=== PATIENT | male | born 1960 | race Caucasian/White ===

== ENCOUNTER 2022-11-13 04:42 | Emergency (ER) | payer OTHER, SELFPAY ==
[2022-11-13 04:44] VITALS: BP 125/74; PULSE 80; RESP 18; TEMP 36.4; O2SAT 99; BMI 43.3
--- NOTE | 2022-11-13 04:44 | EDS_ITS ---
HPI HPI - Fall History of Present Illness Chief Complaint: Trauma PFSH PFSH Home Medications lansoprazole 15 mg capsule,delayed release (Prevacid) 15 mg PO DAILY 12/13/15 [History Last Taken Unknown] cephalexin 500 mg capsule 500 mg PO Q8H #21 caps 11/13/22 [Rx Last Taken Unknown] lisinopril 20 mg tablet 20 mg PO DAILY 11/13/22 [History Last Taken Unknown] Allergy/AdvReac Type Severity Reaction Status Date / Time lincomycin [From Lincocin] Allergy Unknown Verified 11/13/22 04:59 Penicillins Allergy JOINT PAIN Verified 11/13/22 04:59 Social History Smoking Status: Former smoker EXAM Physical Exam Const Vital Signs: 11/13/22 04:44 11/13/22 04:50 Temperature 97.5 F L 97.6 F L Temperature Source Temporal Temporal Pulse Rate 80 80 Respiratory Rate 18 16 Blood Pressure 125/74 H 125/74 H Blood Pressure Mean 91 91 Pulse Ox 99 99 Oxygen Delivery Method Room Air Room Air MDM MDM MDM Narrative Medical decision making narrative: HISTORY OF PRESENT ILLNESS: 62-year-old male here for hand injury. The patient states he is of mechanical fall from standing prior to arrival. States he was drinking. He notes he was on his porch and he fell forward injuring his head, left hand. No severe laceration to the left hand. No blood thinners. No loss of consciousness. No other complaints. Patient is left-hand dominant. Unknown last tetanus REVIEW OF SYSTEMS: Pertinent positives: hand wound Pertinent negatives: Loss of consciousness, extremity injury PHYSICAL EXAM: Nursing triage notes reviewed, Vital signs reviewed Primary Survey Airway: Intact Breathing: Bilateral breath sounds Circulation: Palpable bilateral femorals, Palpable bilateral radial, Palpable bilateral DP and Palpable bilateral PT Disability / Spine precautions GCS Score: Eye Openin Verbal Response: 5 Motor Response: 6 Secondary Survey Constitutional: Please see MDM Head: Atraumatic, Midface stable, NO jaw malocclusion, No Cephalohematoma, and No Lacerations noted Eye: Pupils equal round and reactive to light, Extraocular muscles intact and No periorbital ecchymosis or stepoff, no evidence of entrapment ENT: Oropharynx clear, no lacerations, no hemotympanum, no raccoon eyes or tabares sign Cervical spine / Neck: No cervical spine bony tenderness, crepitance, or stepoff deformity Trachea midline Lungs: Clear to auscultation, No asymmetric rise and No crepitus, no flail chest Cardiac: Regular rate and rhythm and No murmurs Abdomen: Soft, Nontender and No rebound Pelvis: Pelvis stable to compression : No evidence of genital injury Back: No midline bony tenderness to thoracic/lumbar/sacral spines Neuro: Alert and oriented x3, neuro exam at baseline, cranial nerves II through XII are intact. No pain with extraocular muscle movement. There is negative test of skew. 5 of 5 strength in upper and lower extremities in flexion extension. Intact sensation to light touch in upper and lower extremity dermatomes. No truncal or extremity ataxia. No dysdiadochokinesia. Normal gait. 2+ reflexes in upper and lower extremities. No meningeal signs. Ne gative Babinski. NIH of 0. Intact 5/5 strength with ok sign (median), intact finger abduction (ulnar) intact wrist extension (radial n). Intact sensation in the radial, ulnar, and median nerve distributions. Extremities: Large laceration noted to left hand, no tendinous involvement, intact flexion with the flexor digitorum superficialis and flexor digitorum profundus tendons Psych: Normal affect Nursing triage notes reviewed, Vital signs reviewed MEDICAL DECISION MAKING: Chief Complaint: Fall, head trauma, left hand laceration External records reviewed: Old chart reviewed: No recent ED visits, last ED visit 2017 for right knee effusion Factors affecting care: Hypertension Social determinants of health: former smoker, current alcohol drinker History obtained from others: The patient's Consults: none MDM Narrative: Patient was hemodynamically stable, afebrile, nontoxic-appearing. Primary secondary trauma surveys concerning for the following I considered the following differential diagnosis: Intracranial abnormality, cervical spine abnormality, left hand fracture dislocation, severe laceration ALL IMAGES (IF OBTAINED) HAVE BEEN PERSONALLY REVIEWED AND INTERPRETED BY MYSELF. X-ray of the left hand was read interpreted by myself shows no evidence of obvious bony abnormality. No evidence of obvious radiopaque foreign body CT scan of the head and cervical spine are negative for acute traumatic injury Tetanus updated. Given Keflex for antimicrobial prophylaxis. The patient suffered lacerations to the left hand On exam there was no evidence of foreign bodies. . There was no evidence of neurovascular injury. Patient had a normal distal vascular exam, and had intact ROM and sensation. There was also no evidence of tendon injury, with normal distal full range of motion, flexion, extension, abduction, abduction. There is no evidence of local joint space involvement at this time. Wound care applied (irrigation and/or local cleansing solution). Laceration repair was then performed please see procedure note. Antibiotic written for home-going. The patient was given signs and symptoms warnings for infection, such as increasing pain, redness, swelling, associated heat, pus or fever. Patient was given instructions for timely follow-up for removal. Patient agreed with the plan of care Procedure: Laceration repair. The procedure was performed by myself. Indication: Wound repair Risks and benefits: risks, benefits and alternatives were discussed Consent: Consent was obtained. Wound Details: approximately 8 cm long curvilinear laceration noted from the dorsum of the left hand wrapping around the fifth metacarpal into the palmar surface Anesthesia: 1% lidocaine injected along the margins of the wound Wound prep: Patient was prepped and draped in the usual sterile fashion. Tetanus: Updated Irrigation Solution: Saline Wound Preparation: Soaked in chlorhexidine and normal saline for approximately 40 minutes The wound was explored to its base in a bloodless field. Procedure Description: Complex wound to the left hand repaired with a running 5 oh chromic gut sutures with adequate approximation Patient tolerated the procedure well with no immediate complications The patient and/or family, caregivers express understanding. The patient and/or family, caregivers agrees with the plan. Shared decision making: I will have a discussion with the patient and or visitors regarding risk/benefits of further testing or admission. They will be made aware of of the risk/benefits inherent in this decision they will be given the opportunity to voice understanding. Total critical care time today provided was at least 0 minutes. This excludes separately billable procedures. Critical care time (if documented) is secondary to the patient having high probability of clinically significant/life threatening deterioration in the patient's condition which required my urgent intervention. Impression: 1. Fall 2. Head trauma 3. Closed head injury 4. Hand laceration Dispo: Discharge Radiography Diagnostic Testing: Clinical Impression(s) from Imaging Studies Brain CT 11/13/22 04:58 IMPRESSION: 1. Mild left forehead scalp contusion. 2. No acute intracranial abnormality. Chronic changes. 3. Acute right maxillary sinusitis. Electronically Signed: Marilu Hassan MD at 5:46 EDT Reading Location ID and State: [facility] / [place] Tel , Service support , Cervical Spine CT 11/13/22 04:58 IMPRESSION: 1. Mild multilevel degenerative changes. No acute cervical spine abnormality. 2. At least moderate-marked cervical carotid calcifications. Consider follow-up ultrasound of the carotids to evaluate for hemodynamically significant stenosis if not previously evaluated. Electronically Signed: Marilu Hassan MD at 5:52 EDT , Hand X-Ray 11/13/22 04:58 IMPRESSION: Deep laceration estimated to be oblique and roughly 1.5 cm in length at the level of the distal fifth metacarpal, very close to but not obviously involving the adjacent bone or joint. Slightly stippled appearance in the laceration suggesting faint debris, not convincing for significant foreign body. Electronically Signed: Marilu Hassan MD at 5:26 EDT , Discharge Plan Triage Chief Complaint: Trauma ED Provider: Kalia Husain Dx/Rx/DC Orders Instructions: ED Laceration, Hand: All Closures Prescriptions: New cephalexin 500 mg capsule 500 mg PO Q8H Qty: 21 0RF No Action lansoprazole [Prevacid] 15 MG capsule 15 mg PO DAILY lisinopril 20 mg tablet 20 mg PO DAILY Primary Care Provider: Brandon Chung Referrals: Brandon Chung MD [Primary Care Provider] - Activity Restrictions/Additional Instructions: Thank you for trusting us with your care today! Please take Tylenol (2 pills, 650 mg), ibuprofen (2 pills, 400 mg) every 6 hours as needed for pain and fever control. Please take antibiotics as prescribed. Please return to the emergency department if your symptoms change or worsen. Specifically if you develop severe headache, loss of vision, slurred speech, facial drooping, focal numbness weakness or loss sensation in your extremities, if you lose consciousness Your hand was repaired absorbable sutures. You do not need to return to get them removed. Please look out for signs of infection which include redness, white-yellow discharge, increasing pain. If these develop please return to the emergency department immediately., Wound recheck Please follow with your primary care physician for further outpatient evaluation and management. Disposition Disposition: Home, Self Care Discharge Date/Time: 11/13/22 06:31
[2022-11-13 04:50] VITALS: BP 125/74; PULSE 80; RESP 16; TEMP 36.4; O2SAT 99
--- NOTE | 2022-11-13 04:58 | RAD_ITS ---
EXAM: XR LEFT HAND COMPLETE, 3 OR MORE VIEWS CLINICAL INDICATION: hand laceration TECHNIQUE: 4 views. COMPARISON: No relevant prior studies available. FINDINGS: BONES/JOINTS: Unremarkable. No acute fracture. No subluxation. Normal alignment. Preservation of the joint space. No sclerotic or destructive changes observed. SOFT TISSUES: Laceration at the medial hand at the level of the distal fifth metacarpal, oblique, without underlying bone fragment or significant MCP joint distention. Very close to the MCP joint. Small ovoid radiopaque metallic foreign body in the index finger proximally appears likely chronic. No soft tissue swelling or gas. RAD/Hand Min 3 Views IMPRESSION: Deep laceration estimated to be oblique and roughly 1.5 cm in length at the level of the distal fifth metacarpal, very close to but not obviously involving the adjacent bone or joint. Slightly stippled appearance in the laceration suggesting faint debris, not convincing for significant foreign body. Electronically Signed: Marilu Hassan MD at 5:26 EDT ,
--- NOTE | 2022-11-13 04:58 | CT_ITS ---
EXAM: CT HEAD WITHOUT INTRAVENOUS CONTRAST CLINICAL INDICATION: fall, head trauma TECHNIQUE: Multiple axial images were obtained of the head without intravenous contrast. This CT exam was performed using one or more of the following dose reduction techniques: automated exposure control, adjustment of the mA and/or kV according to patient size, and/or use of iterative reconstruction technique. RADIATION DOSE: CTDIvol = 44.99 mGy, DLP = 829.85 mGy-cm COMPARISON: No relevant prior studies available. FINDINGS: BRAIN AND EXTRA-AXIAL SPACES: Mild-moderate cerebral volume loss. No intra- or extra-axial hemorrhage. No evidence of acute infarct. No intracranial mass or mass effect. There is preservation of the wesley/white matter interface. Posterior fossa structures are unremarkable. Ventricles are appropriate for age. No hydrocephalus. Basal cisterns are patent. BONES/JOINTS: Unremarkable. No discrete lytic or blastic abnormalities. SOFT TISSUES: Mild left forehead scalp swelling and presumed contusion. SINUSES: Moderate right maxillary sinus fluid. Mild mucosal thickening in the left maxillary sinus Otherwise unremarkable paranasal sinuses. MASTOID AIR CELLS: Unremarkable. Clear. ORBITS: Visualized globes, extraocular muscles, optic nerves and retrobulbar fat appear unremarkable. CT/Brain/Head without Contrast IMPRESSION: 1. Mild left forehead scalp contusion. 2. No acute intracranial abnormality. Chronic changes. 3. Acute right maxillary sinusitis. Electronically Signed: Marilu Hassan MD at 5:46 EDT ,
--- NOTE | 2022-11-13 04:58 | CT_ITS ---
EXAM: CT CERVICAL SPINE WITHOUT INTRAVENOUS CONTRAST CLINICAL INDICATION: neck pain after trauma TECHNIQUE: Helically acquired images were obtained of the cervical spine without intravenous contrast. 2D reformatted images were reviewed. This CT exam was performed using one or more of the following dose reduction techniques: automated exposure control, adjustment of the mA and/or kV according to patient size, and/or use of iterative reconstruction technique. RADIATION DOSE: CTDIvol = 29.17 mGy, DLP = 653.77 mGy-cm. COMPARISON: No relevant prior studies available. FINDINGS: VERTEBRAE: Mild anterior spondylosis at C4-C6. Mild facet joint hypertrophic changes, greater on the left at C2-C5. Slight no evidence of significant spinal stenosis. Straightening of the usual lordotic curvature. No fracture. No traumatic subluxation. No discrete lytic or blastic abnormality. Normal craniocervical junction and cervicothoracic junction. DISCS/SPINAL CANAL/NEURAL FORAMINA: See below. Mild right C2-3, left C3-4, and right C4-5 neural foraminal stenosis. SOFT TISSUES: Unremarkable. No prevertebral soft tissue swelling. VASCULATURE: Moderate-marked cervical carotid calcifications, greater on the right cannot exclude significant Right ICA stenosis. LYMPH NODES: Unremarkable. No cervical adenopathy. THYROID: Mildly heterogeneous thyroid without obvious discrete nodule. LUNG APICES: Unremarkable as visualized. Clear. CT/Spine Cervical without Contras IMPRESSION: 1. Mild multilevel degenerative changes. No acute cervical spine abnormality. 2. At least moderate-marked cervical carotid calcifications. Consider follow-up ultrasound of the carotids to evaluate for hemodynamically significant stenosis if not previously evaluated. Electronically Signed: Marilu Hassan MD at 5:52 EDT ,
[2022-11-13] MEDS: Cephalexin 250 MG Capsule 500 MG PO (05:11)
[2022-11-13] MEDS: Oxycodone/Apap 5/325 Tablet PO (05:12)
[2022-11-13] MEDS: Diphth,Pertuss(Acell),Tet Vac 0.5 ML Vial IM (05:12)
--- NOTE | 2022-11-13 06:30 | ED.RN ---
APPLIED TELFA TO WOUND LEFT HAND AND WRAPPED WITH KERLIX X2 SECURED WITH TAPE, APPLIED CONCETTA WRAP AND BANDAID TO LEFT HAND 5TH DIGIT, SLING APPLIED TO KEEP HAND ELEVATED.
== END 2022-11-13 06:31 | disposition home or self-care (01) ==
PROVIDERS: Emergency Provider Emergency Medicine; PCP Family Medicine; Visit Provider Emergency Medicine
DX: S00.83XA Contusion of other part of head, initial encounter (principal); S61.412A Laceration without foreign body of left hand, initial encounter; I10 Essential (primary) hypertension; Z87.891 Personal history of nicotine dependence; Z23 Encounter for immunization; Z79.899 Other long term (current) drug therapy; W19.XXXA Unspecified fall, initial encounter
CPT/HCPCS: 13132; 13133; 70450; 72125; 73130; 90471; 90715; 99283

== ENCOUNTER 2024-07-01 13:09 | Emergency (ER) | payer OTHER, SELFPAY ==
[2024-07-01 13:12] VITALS: BP 180/115; PULSE 99; RESP 20; TEMP 36.4; O2SAT 99; BMI 43.4
--- NOTE | 2024-07-01 13:57 | EKG12_ITS ---
Test Reason : Blood Pressure : */* mmHG Vent. Rate : 90 BPM Atrial Rate : 90 BPM P-R Int : 168 ms QRS Dur : 90 ms QT Int : 380 ms P-R-T Axes : 46 51 25 degrees QTcB Int : 464 ms Normal sinus rhythm with sinus arrhythmia Normal ECG Confirmed by BINTA BERMUDEZ, MICHAEL ([id number]), manager editorial TOMAS SALAZAR ([id number]) on 07/02/2024 10:29:57 AM Referred By: Confirmed By: MICHAEL JUDD MD
--- NOTE | 2024-07-01 13:58 | RAD_ITS ---
PROCEDURE: CHEST PA AND LATERAL 07/01/2024 REASON FOR EXAM: HYPERTENSION TECHNIQUE: Frontal and lateral views of the chest. COMPARISON: None FINDINGS: Hardware: EKG electrodes are seen. Heart: The heart size is normal. Mediastinum: The mediastinal contour is unremarkable. Lungs: The lungs are clear. Bones: Degenerative changes are identified within the thoracic spine. RAD/Chest PA and Lateral IMPRESSION: NO ACUTE FINDINGS. Reading Location: [facility]
--- NOTE | 2024-07-01 14:07 | EDS_ITS ---
HPI History of Present Illness Chief Complaint: Hypertension Narrative Narrative: Chief complaint and HPI: HTN. 64-year-old gentleman with past medical history of HTN presents for evaluation of HTN. Patient states that he does not follow with a assisted living associate. His doctor manages his medication. He states he is on 40 mg Lisinopril daily. Patient states the past week he has been checking his blood pressure and it has been continuously high. He states this morning his SBP was in the 200s. He states with this he developed lightheadedness, nausea, chest tightness. He states he took another 40 mg lisinopril prior to arrival here in the emergency department. On presentation, blood pressure was in the 180s. Now in the 160s. He states since his blood pressure has improved all of his symptoms have resolved. He denies any fever, chills, shortness of breath, chest pain, emesis, diarrhea. No history of arrhythmia. Patient has a sinus arrhythmia on the monitor. States he does occasionally get short of breath with exertion. Previous tobacco abuser years ago. Denies any cardiac history, hypertension, diabetes. On chart review, patient is supposed to take lisinopril 20 mg twice daily. He states he does not follow this and instead takes 40 mg daily in the morning. Review of systems: See HPI Medications: As listed on the chart Allergies: As listed on the chart PFSH: Per chart Vital signs: As listed on the chart. Reviewed. Physical exam: Gen: A&O x3, NAD Head: Normocephalic, atraumatic Eyes: No sclera icterus, conjunctiva clear ENT: Moist mucous membranes Neck: Trachea midline, No JVD CV: Regular rate and rhythm, no murmurs, no peripheral edema Resp: Lungs CTA BL, no w/r/c GI: Abd soft, non-distended, non-tender, no r/r/g Musc: Full ROM, no deformity Skin: Warm, dry Neuro: Alert, oriented, grossly intact, sensation intact Psych: Cooperative, appropriate mood and affect [facility] Medical History (Updated 07/01/24 @ 16:[address] Kendrick Pérez DO) HTN (hypertension) Home Medications ?Medication ?Instructions ?Recorded ?Last Taken ?Type lisinopril 20 mg tablet 20 mg PO BID 11/13/22 History amlodipine 5 mg tablet 5 mg PO DAILY 30 days #30 ta bs 07/01/24 Unknown Rx lansoprazole 15 mg capsule,delayed 15 mg PO DAILY 06/13 007/01/24 History release magnesium oxide 400 mg PO DAILY 3 days #3 ta bs 07/01/24 Unknown Rx Allergy/AdvReac Type Severity Reaction Status Date / Time lincomycin (From Lincocin) Allergy Unknown Verified 07/01/24 13:14 Penicillins Allergy JOINT PAIN Verified 07/01/24 13:14 Social History Smoking Status: Former smoker EXAM Physical Exam Const Vital Signs: 07/01/24 13:12 07/01/24 13:47 07/01/24 14:09 Temperature 97.6 F L Temperature Source Oral Pulse Rate 99 97 Respiratory Rate 20 H Respiratory Effort Normal Non-Labored Respiratory Pattern Normal Blood Pressure 180/115 H 166/84 H Blood Pressure Mean 136 111 Pulse Ox 99 Oxygen Delivery Method Room Air 07/01/24 16:47 Temperature 97.6 F L Temperature Source Pulse Rate 97 Respiratory Rate 20 H Respiratory Effort Respiratory Pattern Blood Pressure 166/84 H Blood Pressure Mean 111 Pulse Ox 99 Oxygen Delivery Method MDM MDM MDM Narrative Medical decision making narrative: 64-year-old gentleman with past medical history of HTN presents for evaluation of HTN. Patient states his blood pressure has been elevated over the past week when he checks it at home. Today he developed lightheadedness, nausea, chest tightness with the hypertension however since hypertension improved, this has resolved. Patient took an extra 40 mg of lisinopril prior to coming to the emergency department. His SBP currently in the 160s. Will monitor. Also endorses occasional shortness of breath with exertion. Differential diagnosis includes but is not limited to hypertension urgency, hypertension emergency, arrhythmia, anemia, electrolyte abnormality, thyroid disorder, PE. Aspirin ordered. EKG and chest x-ray reviewed. CBC without leukocytosis. Patient has anemia with a hemoglobin of 10.8 and thrombocytosis of 89. He denies any bloody bowel movements or bleeding. His previous labs are from 2016. He states his last labs with his PCP was 2 years ago and he is unsure if he had these changes then. He was told he needs to follow-up with his PCP. He confirmed u nderstanding of the plan. Coagulation panel unremarkable. D-dimer elevated at 1.44. Patient will need CTA chest to assess for a PE. NS bolus ordered. BMP shows mild dehydration without MICHAEL. Patient has mildly low magnesium at 1.4. P.o. magnesium ordered. Patient will be placed on magnesium supplement x 3 days and will need to have this repeat outpatient. He confirmed understanding the plan. Troponin 22 and 24. Patient not having any chest pain since his hypertension resolved. Delta less than 6. BNP 461. TSH unremarkable. CTA of the chest negative for PE. Some distal pulmonary arteries cannot be evaluated due to suboptimal opacification. Small esophageal hiatal hernia. Patient's blood pressure has remained controlled here in the emergency department. His SBP has remained in the 160s. He is currently asymptomatic. I suspect patient's symptoms are likely secondary to hypertension urgency. Will place him on amlodipine with his lisinopril. He was told to monitor his blood pressure at home. Follow-up with his PCP as well as let them know that I added on a medication. Return precautions explained. He confirmed understanding the plan. Patient stable to discharge home. EKG: Interpreted by me/EM physician: EKG shows normal sinus rhythm with sinus arrhythmia. Heart rate 90. Diagnostic: Interpreted by me/EM physician: Chest x-ray without pneumonia, effusion, c ardiomegaly, pneumothorax. Radiology in agreement. Impression: 1. Hypertension urgency with established hypertension 2. Mild hypomagnesia 3. Anemia 4. Thrombocytopenia Lab Data Labs: Laboratory Results - last 24 hr 07/01/24 07/01/24 13:30 15:54 WBC 4.4 RBC 4.02 L Hgb 10.8 L Hct 33.8 L MCV 84.1 MCH 26.9 L MCHC 32.0 RDW Std Deviation 58.4 H RDW Coeff of Allison 19.5 H Plt Count 89 L MPV 11.8 Immature Gran % (Auto) 0.500 Neut % (Auto) 75.2 H Lymph % (Auto) 10.3 L [place] % (Auto) 12.6 H Eos % (Auto) 0.7 Baso % (Auto) 0.7 Absolute Neuts (auto) 3.3 Absolute Lymphs (auto) 0.45 L Nucleated RBC % 0 Platelet Estimate SLT DEC Plt Morphology Comment LARGE PT 13.6 INR 1.0 APTT 34.5 D-Dimer Quant (PE/DVT) 1.44 H* Sodium 133 Potassium 4.1 Chloride 93 L Carbon Dioxide 20.0 L Anion Gap 20 H BUN 14 Creatinine 0.66 L Estim Creat Clear Calc 167.50 Est GFR (MDRD) Non-Af 105 BUN/Creatinine Ratio 20.8 H Glucose 105 H Calcium 9.5 Magnesium 1.4 L Troponin T High Sens 22 Troponin T Hi Sens 2 Hr 24 H NT pro BNP II 461 TSH 2.560 Radiography Diagnostic Testing: Clinical Impression(s) from Imaging Studies Chest X-Ray 07/01/24 13:58 IMPRESSION: NO ACUTE FINDINGS. Reading Location: [facility] Chest CTA 07/01/24 14:51 IMPRESSION: 1. No pulmonary embolism is identified. Some of the distal pulmonary arteries cannot be evaluated due to suboptimal opacification. 2. Small esophageal hiatal hernia. Reading Location: [facility] Discharge Plan Triage Chief Complaint: Hypertension ED Provider: Kendrick Pérez Dx/Rx/DC Orders Clinical Impression: Hypertension, Hypomagnesemia, Anemia, Thrombocytopenia Instructions: ED Hypertension, Established Prescriptions: New amlodipine 5 mg tablet 5 mg PO DAILY 30 Days Qty: 30 0RF magnesium oxide 400 mg magnesium tablet 400 mg PO DAILY 3 Days Qty: 3 0RF No Action lisinopril 20 mg tablet 20 mg PO BID lansoprazole 15 mg capsule,delayed release(DR/EC) 15 mg PO DAILY Other Ambulatory Orders: Magnesium (Routine) Timeframe: 3 Days Facility: [facility] - Location: Laboratory Ordered By: Dr. Kendrick Pérez Primary Care Provider: Kylie Angelo Referrals: Brandon Chung MD [Non-Staff] - 3-5 Days Activity Restrictions/Additional Instructions: Your laboratory study shows that you are anemic with a hemoglobin of 10.8 and low platelets of 89. You need to have this further worked up outpatient. Your magnesium was mildly low here in the emergency department. I will put you on magnesium replacement. You will need to have your magnesium repeated. I will g caroline you a prescription for this. Monitor your blood pressure at home. Start the amlodipine. Follow-up with your doctor. Return back to the ED if symptoms change or worsen. Print Language: Bangladeshi Disposition Disposition: Home, Self Care Discharge Date/Time: 07/01/24 16:57
[2024-07-01] MEDS: Aspirin 81 MG TAB.CHEW 324 MG PO (14:08)
[2024-07-01 14:09] VITALS: BP 166/84; PULSE 97
[2024-07-01 14:23] LABS: Absolute Lymphocyte Count 0.45 X10^3/uL (0.83-4.51); Absolute Neutrophil Count 3.3 X10^3/uL (2.0-7.7); Basophil# 0.03 X10^3/uL; Basophil% 0.7 % (0-1); Eosinophil# 0.03 X10^3/uL; Eosinophils% 0.7 % (0-5); Hematocrit 33.8 % (40-54); Hemoglobin 10.8 g/dL (13.0-16.5); Lymphocyte # 0.45 X10^3/ul (0.83-4.51); Lymphocyte % 10.3 % (19-41); Mean Corpuscular Hgb 26.9 pg (27.0-32.0); Mean Corpuscular Volume 84.1 fL (80-94); Mean Platelet Vol. 11.8 fl (6.2-12.0); Monocyte# 0.55 X10^3/uL; Monocyte% 12.6 % (0-10); NRBC Flagged by Analyzer 0 % (0-5); Neutrophil # 3.29 X10^3/uL (2.7-7.7); Neutrophil % 75.2 % (47-70); POSITIVE COUNT YES; POSITIVE DIFFERENTIAL YES; Platelet Count 89 K/mm3 (150-450); RBC Distribution Width CV 19.5 % (11.6-14.6); RBC Distribution Width SD 58.4 fl (35.1-43.9); Red Blood Count 4.02 M/mm3 (4.6-6.2); White Blood Count 4.4 K/mm3 (4.4-11.0)
[2024-07-01 14:25] LABS: Differential Indicated SCAN CRITERIA MET
[2024-07-01 14:40] LABS: D-Dimer Quantitative (DVT/PE) 1.44 FEU/ug/m (0.27-0.49)
[2024-07-01 14:41] LABS: Anion Gap 20 (5-15); BUN 14 mg/dL (4-19); BUN/Creat Ratio 20.8 RATIO (10-20); Calcium,Total 9.5 mg/dL (7.6-11.0); Chloride 93 mmol/L (98-108); Creatinine, Serum 0.66 mg/dL (0.70-1.20); EST Glomerular Filtration Rate 105 (>60); Glucose 105 mg/dL (70-99); Magnesium 1.4 mg/dL (1.5-2.2); Potassium 4.1 mmol/L (3.3-5.1); Pro- Brain NATRIURETIC PEPTIDE 461 pg/mL (<=900); Sodium Level 133 mmol/L (133-145); Troponin T High Sensitivity 22 ng/L (<=22)
--- NOTE | 2024-07-01 14:44 | ED.RN ---
Dr. Onofre notified of critical d-dimer.
[2024-07-01 14:48] LABS: Prothrombin Time (Protime)PT. 13.6 SECONDS (11.7-14.9)
[2024-07-01 14:49] LABS: Partial Thromboplast Time 34.5 Seconds (24.1-36.2)
--- NOTE | 2024-07-01 14:51 | CT_ITS ---
EXAM: CT Angiography Chest Without and With Intravenous Contrast CLINICAL INDICATION: PE TECHNIQUE: Axial computed tomographic angiography images of the chest without and with intravenous contrast. This CT exam was performed using one or more of the following dose reduction techniques: automated exposure control, adjustment of the mA and/or kV according to patient size, and/or use of iterative reconstruction technique. MIP reconstructed images were created and reviewed. COMPARISON: No relevant prior studies available. FINDINGS: LIMITATIONS: Suboptimal opacification of the pulmonary arteries. PULMONARY ARTERIES: No pulmonary embolism is identified. Some of the distal pulmonary arteries cannot be evaluated due to suboptimal opacification. AORTA: No acute findings. No thoracic aortic aneurysm. LUNGS AND PLEURAL SPACES: Unremarkable. No mass. No consolidation. No significant effusion. No pneumothorax. HEART: Unremarkable. No cardiomegaly. No significant pericardial effusion. No evidence of RV dysfunction. MEDIASTINUM: A few prominent mediastinal lymph nodes measuring up to 6 mm. Small esophageal hiatal hernia. BONES/JOINTS: No acute fracture. No dislocation. SOFT TISSUES: Unremarkable. LYMPH NODES: See above. LIVER: Fatty liver. CT/CTA Chest W/WO Contrast IMPRESSION: 1. No pulmonary embolism is identified. Some of the distal pulmonary arteries cannot be evaluated due to suboptimal opacification. 2. Small esophageal hiatal hernia. Reading Location: [facility]
[2024-07-01 15:14] LABS: Platelet Estimate SLT DEC (ADEQ); Platelet Morphology LARGE
[2024-07-01] MEDS: 0.9% Normal Saline (1000mL) 1,000 ML 999 ML IV (15:31)
[2024-07-01 16:31] LABS: Troponin T High Sens 2 HR 24 ng/L (<=22)
[2024-07-01] MEDS: Magnesium Chloride 64 MG Delay Rel.Tablet 128 MG PO (16:43)
[2024-07-01 16:47] VITALS: BP 166/84; PULSE 97; RESP 20; TEMP 36.4; O2SAT 99
== END 2024-07-01 16:57 | disposition home or self-care (01) ==
PROVIDERS: Emergency Provider Surgery; PCP Nurse Practitioner Family; Visit Provider Surgery
DX: I10 Essential (primary) hypertension (principal); E83.42 Hypomagnesemia; D69.6 Thrombocytopenia, unspecified; R06.02 Shortness of breath; Z87.891 Personal history of nicotine dependence; Z79.899 Other long term (current) drug therapy
CPT/HCPCS: 71046; 71275; 80048; 83735; 83880; 84443; 84484; 85025; 85379; 85610; 85730; 93005; 96360; 99284; Q9967; A4216

== ENCOUNTER → 2024-07-03 | Outpatient (CLI) | payer OTHER, SELFPAY ==
[2024-07-03 16:14] LABS: Cholesterol 213 mg/dL (<=200); High Density Lipoprotein 121 mg/dL; Low Density Lipoprotein Calc. 78 mg/dL; Magnesium 1.4 mg/dL (1.5-2.2); Triglycerides 68 mg/dL; Very Low Density Lipoprotein 14 mg/dL (5-40); Vitamin B12 1175 pg/mL (180-914); cholesterol:hdl ratio screen 1.76
== END | disposition home or self-care (01) ==
LOC: MTLAB 11:04
PROVIDERS: Surgery; PCP Nurse Practitioner Family; Referring Provider Nurse Practitioner Family; Visit Provider Nurse Practitioner Family
DX: M79.2 Neuralgia and neuritis, unspecified (principal); E78.5 Hyperlipidemia, unspecified; R79.0 Abnormal level of blood mineral
CPT/HCPCS: 36415; 80061; 82607; 83735

== ENCOUNTER 2024-11-25 12:08 | Inpatient (IN) | payer OTHER, SELFPAY ==
[2024-11-25] VITALS (9 sets, daily range): BP systolic 148–175; BP diastolic 71–94; PULSE 79–115; RESP 18–24; TEMP 36.4–37.2; O2SAT 98–100; BMI 42.0; BMI 41.8
--- NOTE | 2024-11-25 12:35 | CT_ITS ---
PROCEDURE: ABDOMEN/PELVIS WITHOUT CONT 11/25/2024 REASON FOR EXAM: BILATERAL BACK PAIN TECHNIQUE: Procedure Code: [id number] Modality: CT Procedure: ABDOMEN/PELVIS WITHOUT CONT Noncontrast technique limits evaluation of the abdominal and pelvic viscera. Coronal and Sagittal reconstruction series were provided. One or more dose reduction techniques were used (e.g., Automated exposure control, adjustment of the mA and/or kV according to patient size, use of iterative reconstruction technique). FINDINGS: The lung bases are clear. The peripheral soft tissues unremarkable. Degenerative changes of the spine. Moderate atherosclerosis. Normal caliber abdominal aorta. No suspicious lymphadenopathy. Hypodense liver with mildly irregular surface contour suspicious for hepatic steatosis with possible early mild fibrotic change. Consider elastography. The gallbladder, pancreas, spleen, and adrenals unremarkable. No renal calculi. No hydroureteronephrosis. Colonic diverticulosis without surrounding inflammatory changes. CT/Abdomen/Pelvis without Cont IMPRESSION: Hepatic steatosis with mild irregular surface contour suggestive of early fibro tic change. Correlate with liver function tests and consider elastography for further evaluation. No renal calculi or hydronephrosis. Colonic diverticulosis without evidence of acute diverticulitis. Moderate atherosclerosis and degenerative spinal changes. No acute intra-abdominal or pelvic abnormality identified. Reading Location: [id number]
--- NOTE | 2024-11-25 12:35 | EKG12_ITS ---
Test Reason : CONFUSION Blood Pressure : */* mmHG Vent. Rate : 101 BPM Atrial Rate : * BPM P-R Int : * ms QRS Dur : 88 ms QT Int : 342 ms P-R-T Axes : * 28 11 degrees QTcB Int : 443 ms Atrial fibrillation with rapid ventricular response Abnormal ECG Confirmed by BINTA BERMUDEZ, MICHAEL ([id number]), telegraph editor MARCELINA GAY ([id number]) on 11/26/2024 10:53:48 AM Referred By: JAMIE Confirmed By: MICHAEL JUDD MD
--- NOTE | 2024-11-25 12:36 | EX.ED.DYSGE1 ---
HPI History of Present Illness Chief Complaint: Confusion Narrative Narrative: 64-year-old male past medical history of hypertension presents with low back pain going across his back as well as dark, malodorous urine that has had for the last 1 to 2 weeks. States he denies any injury to his back. Over the last few days he has become more confused and is having problems concentrating. He feels more shaky. He also developed shortness of breath today. He denies any exacerbating or alleviating factors. Had an episode of nausea and vomiting prior to arrival. He states he is so shaky he could barely sign his name in triage. He does drink alcohol. He is unsure as to why he is having bilateral back pain. [facility] Medical History HTN (hypertension) Home Medications ?Medication ?Instructions ?Recorded ?Last Taken ?Type lisinopril 20 mg tablet 20 mg PO TID 11/13/22 07/01/24 History amlodipine 5 mg tablet 5 mg PO DAILY 30 days #30 tabs 07/01/24 Unknown Rx Held on 11/25/24. Instructions: has not been filled magnesium oxide 400 mg (241.3 mg 400 mg PO DAILY 11/25/24 Unknown History magnesium) tablet Allergy/AdvReac Type Severity Reaction Status Date / Time lincomycin (From Lincocin) Allergy Unknown Verified 11/25/24 12:09 Penicillins Allergy JOINT PAIN Verified 11/25/24 12:09 Social History Smoking Status: Former smoker ROS ROS ED ROS Narrative Of systems positive for low back pain, shakiness, dark malodorous urine. No fevers or chills. 1 episode of nausea and vomiting. No exacerbating or alleviating factors. Positive confusion over the last 2 days/problems concentrating. EXAM Physical Exam Narrative Exam Narrative: Afebrile. Vital signs noted. Nontoxic-appearing. HEENT examination shows questionable scleral icterus. Cardiovascular examination mild tachycardia. Lungs clear to auscultation bilaterally. Abdomen is soft and nontender. No crepitance of back. No CVA tenderness to percussion. Neurological examination shows him to be awake, alert, oriented x 3. Mild tremor on examination, intentional Const Vital Signs: 11/25/24 12:08 11/25/24 12:09 11/25/24 13:09 Temperature 98 F 98.4 F 98.9 F Temperature Source Oral Oral Oral Pulse Rate 90 115 H 79 Respiratory Rate 18 24 H 19 H Blood Pressure 164/88 H 175/94 H 148/76 H Blood Pressure Mean 113 121 100 Pulse Ox 99 98 99 Oxygen Delivery Method Room Air Room Air Room Air 11/25/24 14:27 11/25/24 14:30 Temperature 98.5 F 98.5 F Temperature Source Oral Pulse Rate 94 94 Respiratory Rate 18 18 Blood Pressure 152/81 H 152/81 H Blood Pressure Mean 104 104 Pulse Ox 100 100 Oxygen Delivery Method Room Air MDM MDM MDM Narrative Medical decision making narrative: Differential diagnosis includes but not limited to acute liver failure versus dehydration versus hepatorenal syndrome versus acute kidney injury versus hepatic encephalopathy. Comprehensive workup was pursued. I reviewed his laboratory work and he has normal white count of 5.4 with hemoglobin stable at 11.2, hematocrit 34.6, platelet count low at 85. Compared to prior labs, in June of this year he did have thrombocytopenia. Coagulation studies are negative. CMP significant for sodium low at 132 with chloride 92 which may be more dehydration. Bicarb low at 10.3 causing anion gap elevated at 30. Glucose is 81. Lactic acid is elevated at 4.3. This may be more of a starvation versus alcoholic ketosis and elevation. LFTs show elevated AST of 266, ALT 92. Lipase normal at 66. I obtained CT of the abdomen pelvis without contrast and reviewed the radiology report which shows fatty liver and perhaps fibrosis suggesting correlation with LFTs. As these are elevated, patient does admit to drinking alcohol. Urinalysis negative for infection. Chest x-ray obtained and interpreted by myself independently shows no evidence of pneumonia or pneumothorax. I reviewed the radiology report which confirms my independent interpretation. Repeat examination after IV fluids shows mild improvement. However, given his electrolyte abnormality, I discussed the patient with Dr. Roach. She added on an ABG and beta hydroxybutyrate. His beta hydroxybutyrate is elevated but he has a normal blood sugar. Additionally his pH is 7.38 so he is not extremely acidotic. Disposition is admit to the PCU in stable condition. History & Record Review Discussion w/independent historian: Patient and Family Additional record(s) reviewed:: Prior labs Lab Data Attestation: I reviewed the patient's lab results. Labs: Laboratory Results - last 24 hr 11/25/24 11/25/24 12:58 15:00 WBC 5.4 RBC 3.72 L Hgb 11.2 L Hct 34.6 L MCV 93.0 MCH 30.1 MCHC 32.4 RDW Std Deviation 56.6 H RDW Coeff of Allison 16.7 H Plt Count 85 L MPV 11.6 Immature Gran % (Auto) 0.600 Neut % (Auto) 78.4 H Lymph % (Auto) 7.5 L [place] % (Auto) 7.7 Eos % (Auto) 4.5 Baso % (Auto) 1.3 H Absolute Neuts (auto) 4.2 Absolute Lymphs (auto) 0.40 L Nucleated RBC % 0 PT 13.9 INR 1.0 APTT 31.7 Sodium 132 L Potassium 4.6 Chloride 92 L Carbon Dioxide 10.3 L Anion Gap 30 H BUN 11 Creatinine 0.70 Estim Creat Clear Calc 154.91 Est GFR (MDRD) Non-Af 103 BUN/Creatinine Ratio 15.3 Glucose 81 Lactic Acid 4.3 H* Calcium 8.9 Phosphorus 3.2 Magnesium 1.4 L Total Bilirubin 1.00 AST 266 H ALT 92 H Alkaline Phosphatase 91 Ammonia 19.4 Total Protein 7.8 Albumin 4.5 Globulin 3.4 Albumin/Globulin Ratio 1.3 Lipase 66 b-Hydroxybutyric mmol/L 6.6 H Urine Color Yellow Urine Clarity Clear Urine pH 6.0 Ur Specific [place] 1.020 Urine Protein 100 H Urine Glucose (UA) Normal Urine Ketones 150 A* Urine Occult Blood 25 H Urine Nitrite Negative Urine Bilirubin Negative Urine Urobilinogen Normal Ur Leukocyte Esterase Negative Urine RBC 0-5 SEEN Urine WBC 0-5 SEEN Ur Squamous Epith Cells 0-5 SEEN Urine Bacteria 0 SEEN Urine Mucus RARE ABG Data ABG results: ABG 11/25/24 15:05 Specimen Type ART Sample Site R Radial pH 7.38 Bicarbonate Actual 12.7 L Total CO2 13 Base Excess -12 L O2 Saturation 98 ABG pCO2 21.3 L ABG pO2 110 H Martin Test Positive O2 Delivery Device Not entered Vent Mode Not entered Radiography Diagnostic Testing: Clinical Impression(s) from Imaging Studies Abdomen/Pelvis CT 11/25/24 12:35 IMPRESSION: Hepatic steatosis with mild irregular surface contour suggestive of early fibrotic change. Correlate with liver function tests and consider elastography for further evaluation. No renal calculi or hydronephrosis. Colonic diverticulosis without evidence of acute diverticulitis. Moderate atherosclerosis and degenerative spinal changes. No acute intra-abdominal or pelvic abnormality identified. Reading Location: [id number] Chest X-Ray 11/25/24 13:20 IMPRESSION: No acute abnormality Reading Location: [id number] Management Discussion w/another healthcare provider: Hospitalist (Dr. Екатерина Roach) Critical Care Time Critical Care Time: Yes Critical care time (excluding procedures): 30-74 minutes (31 minutes), Including time spent:, Discussing w/Patient &/or Family/Railroad Conductor, Discussing w/Consultants and Arranging Admission or Transfer Discharge Plan Dx/Rx/DC Orders Clinical Impression: Hyponatremia, Lactic acidosis, Elevated liver enzymes, Ketosis Disposition Disposition: Acute Care Hospital [facility]
[2024-11-25] MEDS: 0.9% Normal Saline (1000mL) 1,000 ML 1000 ML IV (13:08)
[2024-11-25 13:13] LABS: Color, Urine Yellow (Yellow); Glucose, Dipstick Normal (Normal); Leukocyte Esterase-Dipstick Negative /ul (Negative); Nitrite-Dipstick Negative (Negative); Occult Blood-Urine 25 /ul (Negative); Protein-Dipstick 100 mg/dl (Negative); Specific Gravity, Urine 1.020 (1.002-1.030); Urine Bilirubin Dipstick Negative (Negative)
[2024-11-25 13:20] LABS: Hematocrit 34.6 % (40-54); Hemoglobin 11.2 g/dL (13.0-16.5); Immature Granulocytes Count 0.030 X10^3/uL (0.0-0.0); Mean Corp Hgb Conc 32.4 g/dL (32-36); Mean Corpuscular Volume 93.0 fL (80-94); Mean Platelet Vol. 11.6 fl (6.2-12.0); NRBC Flagged by Analyzer 0 % (0-5); POSITIVE COUNT YES; POSITIVE DIFFERENTIAL YES; Platelet Count 85 K/mm3 (150-450); RBC Distribution Width CV 16.7 % (11.6-14.6); RBC Distribution Width SD 56.6 fl (35.1-43.9); Red Blood Count 3.72 M/mm3 (4.6-6.2); White Blood Count 5.4 K/mm3 (4.4-11.0)
--- NOTE | 2024-11-25 13:20 | RAD_ITS ---
PROCEDURE: CHEST 1 VIEW (PORTABLE) 11/25/2024 REASON FOR EXAM: SHORTNESS OF BREATH TECHNIQUE: Frontal view of the chest. COMPARISON: July 01, 2024 FINDINGS: Hardware: EKG leads Heart: The heart size is normal. Lungs: The lungs are clear. Bones: The bones are unremarkable. RAD/Chest 1 View (Portable) IMPRESSION: No acute abnormality Reading Location: [id number]
[2024-11-25 13:27] LABS: Ketone-Dipstick 150 mg/dl (Negative)
[2024-11-25 13:30] LABS: Red Blood Cells-Urine 0-5 SEEN /hpf (0-5)
[2024-11-25 13:31] LABS: Mucous, Urine RARE /hpf (<or=2+); Squamous Epithelial Cells - UA 0-5 SEEN /hpf (0-5)
[2024-11-25 13:34] LABS: AST(SGOT) 266 U/L (<=37); Alanine Aminotransfer ALT/SGPT 92 U/L (<=46); Albumin, Serum 4.5 g/dL (3.4-4.8); Alkaline Phosphatase 91 U/L (40-129); Ammonia 19.4 umol/L (16-60); Anion Gap 30 (5-15); BUN 11 mg/dL (4-19); BUN/Creat Ratio 15.3 RATIO (10-20); Calcium,Total 8.9 mg/dL (7.6-11.0); Carbon Dioxide 10.3 mmol/L (21.0-32.0); Chloride 92 mmol/L (98-108); Estimated Creatinine Clearance 154.91 ml/min (50-250); Globulin 3.4 g/dL (2.2-4.2); Glucose 81 mg/dL (70-99); Lipase 66 U/L (13-75); Potassium 4.6 mmol/L (3.3-5.1)
[2024-11-25 13:40] LABS: Prothrombin Time (Protime)PT. 13.9 SECONDS (11.7-14.9)
[2024-11-25 13:41] LABS: Partial Thromboplast Time 31.7 Seconds (24.1-36.2)
--- NOTE | 2024-11-25 14:47 | PCM.HP.STD ---
HPI - General General Date of Admission: 11/25/24 Date of Service: 11/25/24 Chief Complaint: Confusion HPI Narrative SABRINA AUGUSTIN, is a 64 M who presented to the emergency department [facility] on 11/25/2024 with a chief complaint of confusion. Patient stated he not feeling exactly well over the last 2 weeks. His p.o. intake has declined pretty significantly to the point he is not eating a lot of food. He states he is able to drink but not eat. He states he is just not hungry. Over the past few days he has had some issues concentrating and feels confused. He has been somewhat shaky. He has had some intermittent shortness of breath. He had 1 episode of nausea and vomiting prior to arrival but this has not been an ongoing issue prior to him presenting to the emergency department and he had no other episodes after arriving. The time of my evaluation he stated I am starving. He had previously been on GLP 1 inhibitor but only took it for a month. He states he has not taken any in 2 months. His only other medications include amlodipine and lisinopril as well as magnesium supplement. He denies any abdominal pain and states that his bowels have been normal. He has had low back pain which has been new for him in the last 2 weeks and complained of malodorous urine during this time. As well he does drink alcohol on a regular basis. Vital signs at the time of presentation showed temperature of 98, heart rate 90, respiratory rate 18, blood pressure 164/88 and pulse ox was 99% on room air. CBC showed a mild anemia with a hemoglobin of 11.2 with an unknown baseline. He does not have an elevated white count. He does have thrombocytopenia which does not appear to be new and was present and stable on lab from 07/01/2024. He does have a mild left shift with a 78.4% neutrophilia. Coags are unremarkable. His chemistry panel was markedly abnormal with a sodium of 132, chloride of 92, carbon dioxide of 10.3, anion gap of 30 with normal renal function. His glucose was 81. Lactic acid was 4.3. Phos was 3.2 and magnesium levels 1.4. Liver functions were elevated with an AST of 266 and an ALT of 92. Ammonia was normal at 19.4. Bilirubin was normal. Lipase was 66. Beta-hydroxybutyrate was elevated at 6.6. ABG showed a pH of 7.38 with a pCO2 of 21.3 and a pO2 of 110 on room air. Bicarb on ABG was 12.7. Given the fact that he is not on any GLP-1 or SGLT2 inhibitors this is not euglycemic DKA. I suspect it is probably a combination of alcohol and starvation ketosis. His blood alcohol level was elevated at 49.2. His salicylate level is less than 0.5 and his toxicology screen was otherwise negative. His UA did have excessive ketones at 150 but was not consistent with infection. Chest x-ray was unremarkable for any acute findings. CT of the abdomen pelvis was performed without contrast and showed hepatosteatosis with concern for early fibrotic changes due to irregular surface contour, normal renal anatomy, colonic diverticulosis without diverticulitis, moderate atherosclerotic disease and no acute intra-abdominal or pelvic abnormality noted. [facility] Medical History Morbid obesity Anemia Thrombocytopenia HTN (hypertension) Home Medications ?Medication ?Instructions ?Recorded ?Last Taken ?Type lisinopril 20 mg tablet 20 mg PO TID 11/13/22 07/01/24 History amlodipine 5 mg tablet 5 mg PO DAILY 30 days #30 tabs 07/01/24 Unknown Rx Held on 11/25/24. Instructions: has not been filled magnesium oxide 400 mg (241.3 mg 400 mg PO DAILY 11/25/24 Unknown History magnesium) tablet Allergy/AdvReac Type Severity Reaction Status Date / Time lincomycin (From Lincocin) Allergy Unknown Verified 11/25/24 12:09 Penicillins Allergy JOINT PAIN Verified 11/25/24 12:09 Family History no significant family his no significant family history Surgical History no surgical history no surgical history Social History (Updated 11/25/24 @ 21:[address] Екатерина Roach DO) household members: spouse housing: house Smoking Status: Former smoker alcohol intake: current alcohol intake frequency: 3 or more drinks per day substance use type: does not use ROS Constitutional Constitutional: Reports anorexia, fatigue, malaise and weakness; Denies change in weight, chills, fever(s), night sweats or other Eyes Eyes: Denies blurry vision, change in eye color, change in vision, discharge from eye(s), double vision, erythema, eye pain, loss of vision or other ENT HEENT: Denies abnormal hearing, dysphagia, ear pain, epistaxis, headache(s), hearing loss, nasal congestion, nasal discharge, post nasal drip, sinus pressure, sore throat or other Cardiovascular Cardiovascular: Denies chest pain, claudication, dyspnea on exertion, edema, lightheadedness, orthopnea, palpitations, paroxysmal nocturnal dyspnea, rapid heart rate, syncope or other Respiratory/Chest Respiratory/Chest: Reports dyspnea; Denies cough, excessive phlegm production, hemoptysis, productive cough, shortness of breath at rest, shortness of breath with exertion, wheezing or other Gastrointestinal Gastrointestinal: Reports nausea and vomiting; Denies abdominal pain, coffee ground emesis, constipation, diarrhea, dyspepsia, hematemesis, hematochezia, loose stools or melena Genitourinary Genitourinary: Reports other Details: Smelly urine ; Denies burning urination, difficulty urinating, dysuria, hematuria, nocturia, urinary frequency, urinary hesitancy, urinary incontinence or urinary urgency Musculoskeletal Musculoskeletal: Reports back pain; Denies arthralgias, joint pain, joint stiffness, joint swelling, myalgias, neck pain or other Neurologic Neurologic: Denies abnormal gait, abnormal speech, confusion, disequilibrium, dizziness, focal weakness, headache(s), numbness, paresthesias, seizure-like activity, seizures, syncope, tingling, tremor(s) or other Psychiatric Psychiatric: Denies anxiety, depression, homicidal ideation, suicidal ideation or other Endocrine Endocrinology: Denies change in body appearance, cold intolerance, excessive sweating, heat intolerance, polydipsia, polyuria or other Hematologic/Lymphatic Hematologic/Lymphatic: Denies anemia, easy bleeding, easy bruising, lymphadenopathy or other Allergic/Immunologic Allergic/Immunologic: Denies rhinitis, hives, eczemia, asthma or other Vital Signs Vital Signs Vital Signs: 11/25/24 12:08 11/25/24 12:09 11/25/24 13:09 Temperature 98 F 98.4 F 98.9 F Temperature Source Oral Oral Oral Pulse Rate 90 115 H 79 Respiratory Rate 18 24 H 19 H Blood Pressure 164/88 H 175/94 H 148/76 H Blood Pressure Mean 113 121 100 Pulse Ox 99 98 99 Oxygen Delivery Method Room Air Room Air Room Air 11/25/24 14:27 11/25/24 14:30 Temperature 98.5 F 98.5 F Temperature Source Oral Pulse Rate 94 94 Respiratory Rate 18 18 Blood Pressure 152/81 H 152/81 H Blood Pressure Mean 104 104 Pulse Ox 100 100 Oxygen Delivery Method Room Air Weight Weight: 140.432 kg Body Mass Index (BMI) 42.0 Physical Exam Const alert, oriented x3 and no apparent distress; Negative for average body habitus or healthy appearing Constitutional Narrative: Morbidly obese, white male, sitting up in bed, mildly tachypneic but does not appear uncomfortable, significant other at bedside, nontoxic and does not appear acutely ill General Appearance: cooperative HEENT normocephalic and head/scalp atraumatic; Negative for hearing grossly normal bilaterally or moist oral mucous membranes HEENT Narrative: Mallampati 4, no thrush, mucous membranes are somewhat dry, mild hearing loss Eyes EOMs intact bilaterally and conjunctivae normal Eyes Narrative: No scleral icterus Neck supple Neck Narrative: Neck is short and thick, trachea midline Resp no retractions, no use of accessory muscles and clear to auscultation bilaterally Resp Narrative: Mild tachypnea with no signs of respiratory distress Auscultation: Negative for rales, rhonchi or wheezes Cardio regular rate, regular rhythm, S1 normal heart sound, S2 normal heart sound, no murmurs, no rub, no gallops and no clicks Cardio Narrative: Distant due to body habitus GI normal to inspection, nondistended, normoactive bowel sounds, soft to palpation and non-tender Extremity no clubbing, cyanosis or edema Extremity Narrative: 2+ pedal and radial pulses Skin no jaundice, no petechiae and no mottling Neuro moves all extremities and no focal motor deficits Speech: speech normal Psych affect normal Psych Narrative: Pleasant, interacts appropriately, and is asking if he can leave tomorrow Results Lab / Micro Data 11/25/24 12:58 11/25/24 18:05 Labs: Laboratory Results - last 24 hr 11/25/24 12:58: WBC 5.4, RBC 3.72 L, Hgb 11.2 L, Hct 34.6 L, MCV 93.0, MCH 30.1, MCHC 32.4, RDW Std Deviation 56.6 H, RDW Coeff of Allison 16.7 H, Plt Count 85 L, MPV 11.6, Immature Gran % (Auto) 0.600, Neut % (Auto) 78.4 H, Lymph % (Auto) 7.5 L, [place] % (Auto) 7.7, Eos % (Auto) 4.5, Baso % (Auto) 1.3 H, Absolute Neuts (auto) 4.2, Absolute Lymphs (auto) 0.40 L, Nucleated RBC % 0, PT 13.9, INR 1.0, APTT 31.7, Sodium 132 L, Potassium 4.6, Chloride 92 L, Carbon Dioxide 10.3 L, Anion Gap 30 H, BUN 11, Creatinine 0.70, Estim Creat Clear Calc 154.91, Est GFR (MDRD) Non-Af 103, BUN/Creatinine Ratio 15.3, Glucose 81, Lactic Acid 4.3 H*, Calcium 8.9, Total Bilirubin 1.00, AST 266 H, ALT 92 H, Alkaline Phosphatase 91, Ammonia 19.4, Total Protein 7.8, Albumin 4.5, Globulin 3.4, Albumin/Globulin Ratio 1.3, Lipase 66, Urine Color Yellow, Urine Clarity Clear, Urine pH 6.0, Ur Specific [place] 1.020, Urine Protein 100 H, Urine Glucose (UA) Normal, Urine Ketones 150 A*, Urine Occult Blood 25 H, Urine Nitrite Negative, Urine Bilirubin Negative, Urine Urobilinogen Normal, Ur Leukocyte Esterase Negative, Urine RBC 0-5 SEEN, Urine WBC 0-5 SEEN, Ur Squamous Epith Cells 0-5 SEEN, Urine Bacteria 0 SEEN, Urine Mucus RARE Imaging Radiology Impression Abdomen/Pelvis CT 11/25/24 12:35 IMPRESSION: Hepatic steatosis with mild irregular surface contour suggestive of early fibrotic change. Correlate with liver function tests and consider elastography for further evaluation. No renal calculi or hydronephrosis. Colonic diverticulosis without evidence of acute diverticulitis. Moderate atherosclerosis and degenerative spinal changes. No acute intra-abdominal or pelvic abnormality identified. Reading Location: [id number] Chest X-Ray 11/25/24 13:20 IMPRESSION: No acute abnormality Reading Location: [id number] Assessment & Plan Assessment/Plan (1) Ketosis: (2) Elevated liver enzymes: (3) Lactic acidosis: (4) Hyponatremia: (5) Hypomagnesemia: (6) High anion gap metabolic acidosis: (7) Elevated beta-hydroxybutyrate: PLAN: Plan Ketosis with elevated beta hydroxybutyrate - Suspect alcoholic and starvation - 6.6 on admission will repeat in a.m. - Treat with D5 LR - Encourage p.o. intake - Check a.m. TSH for hypermetabolic state that would produce ketosis Anion gap metabolic acidosis - Patient with elevated beta hydroxybutyrate I highly suspect this is accommodation of alcohol and starvation ketosis - Patient is not on a GLP-1 or an SGLT2 inhibitor so euglycemic DKA is unlikely as there is no precipitating medications - Blood glucose on presentation was 81 - ABG on presentation does show respiratory compensation for acidosis with a pCO2 of 20 - Will treat with dextrose and LR and trend BMPs Hypomagnesemia - 2 g bolus - Recheck in a.m. Lactic acidosis - Etiology is unclear - Patient with no signs of perfusion abnormalities - Could potentially be a type II lactic acidosis as patient does appear to have some liver disease if stays elevated we will need to transition off lactated ringer as the liver is responsible for converting lactate and lactated Ringer's to bicarb and in liver and if he has liver disease that is severe enough that conversion does not happen and lactic acid actually increases - repeat lactic acid in a.m. - If elevated transition to D5 normal saline Hyponatremia - Mild - No further workup at this time other than checking TSH - Repeat lab in a.m. - Suspect related to decreased p.o. solute intake Transaminitis - Patient appears to have hepatosteatosis on imaging - Suspect metabolic induced fatty liver disease - Recommend outpatient follow-up with GI Thrombocytopenia - Again likely related to liver disease - Outpatient follow-up with GI Acute back pain - Check imaging - As needed acetaminophen - As needed oxycodone Essential hypertension - Continue lisinopril but give twice daily rather than 3 times daily - Patient had previously been on amlodipine 5 mg daily but currently on hold - Will monitor blood pressure and treat accordingly Morbid obesity - Recommend weight loss - BMI is 41.9 - Complicates treatment, prognosis, outcomes DVT prophylaxis - Subcu enoxaparin twice daily CODE STATUS -DNR CCA with no intubation per discussion on admission Charges/Coding Visit Charges Inpatient E&M: 43599 Init Hosp L3
[2024-11-25 15:08] LABS: Allen Test Positive; Base Excess -12 mmol/L (-2 to +2); PO2 110 mmHG (75-100); SITE R Radial; SO2 98 % (95-99)
[2024-11-25 15:43] LABS: Magnesium 1.4 mg/dL (1.5-2.2)
[2024-11-25 16:03] LABS: BETA-HYDROXYBUTYRATE 6.6 mmol/L (0.0-0.3)
[2024-11-25 16:36] LABS: Salicylate < 0.5 mg/dL (2.8-20.0)
[2024-11-25 16:41] LABS: Barbiturate Urine NEGATIVE (< 200 ng/mL); Benzodiazepine Urine NEGATIVE (< 200 ng/mL); PCP Urine NEGATIVE (< 25 ng/mL); THC Urine NEGATIVE (< 50 ng/mL)
[2024-11-25 16:57] LABS: Alcohol, Blood (Medical)-Serum 49.2 mg/dL (<=10.0)
[2024-11-25 17:04] LABS: Reflex Lactate? Y
--- NOTE | 2024-11-25 17:51 | EKG12_ITS ---
Test Reason : O Blood Pressure : */* mmHG Vent. Rate : 95 BPM Atrial Rate : * BPM P-R Int : * ms QRS Dur : 94 ms QT Int : 374 ms P-R-T Axes : * 37 47 degrees QTcB Int : 469 ms Atrial fibrillation Nonspecific ST abnormality Abnormal ECG When compared with ECG of 25-Nov-2024 12:45, MANUAL COMPARISON REQUIRED DATA IS UNCONFIRMED Confirmed by BINTA BERMUDEZ, MICHAEL ([id number]), supervising film or videotape editor MARCELINA GAY ([id number]) on 11/27/2024 9:57:20 AM Referred By: DUGLAS Confirmed By: MICHAEL JUDD MD
[2024-11-25] MEDS: Magnesium Sulfate 2 GM in Dextrose 5%-Water (100mL Bag) 100 ML IV (18:59)
[2024-11-25] MEDS: 0.9% Normal Saline (250mL Bag) 250 ML 15 ML IV (19:02)
--- NOTE | 2024-11-25 19:26 | CASEMGMT ---
Care Management Face to Face with patient for initial transition planning/care coordination assessment in the ED.? This brief writer introduced self and role at [facility]. Patient alert and oriented. Patient willing to participate in assessment and is able to answer all questions appropriately.? Care providers, pharmacy, and demographics verified. Admitting Diagnosis: Other diagnosis history: hypertension PCP: Petey Specialists: ?None Preferred Pharmacy: [facility] Insurance: ?Medical mutual Prescription Benefit: ?none Living Will/HPOA: ?completed LNOK: Living Arrangements: ?lives with in one story home. Independent with ADLs and IADLs Transportation: ?patient drives DME: blood pressure cuff HHC: ?none SNF/Rehab: ?none Community Resources: ?none Behavioral Health History: ?none Patient goals: Patient wishes to discharge home, denies need for home health care at this time. Patient denies any further needs or concerns at this time. Disposition Plan: admission to acute; RN CM/SW to follow for discharge planning needs that may arise. Krista Sy, NUT SIFTER, SWITCHBOARD CLERK
[2024-11-25 19:43] LABS: Anion Gap 29 (5-15); BUN 10 mg/dL (4-19); BUN/Creat Ratio 11.9 RATIO (10-20); Calcium,Total 8.9 mg/dL (7.6-11.0); Carbon Dioxide 11.3 mmol/L (21.0-32.0); Chloride 93 mmol/L (98-108); Estimated Creatinine Clearance 132.02 ml/min (50-250); Glucose 81 mg/dL (70-99); Potassium 5.2 mmol/L (3.3-5.1)
[2024-11-25 21:30] LABS: Anion Gap 24 (5-15); BUN 9 mg/dL (4-19); BUN/Creat Ratio 11.9 RATIO (10-20); Calcium,Total 8.8 mg/dL (7.6-11.0); Carbon Dioxide 12.0 mmol/L (21.0-32.0); Chloride 94 mmol/L (98-108); Estimated Creatinine Clearance 140.59 ml/min (50-250); Glucose 127 mg/dL (70-99); Potassium 4.6 mmol/L (3.3-5.1)
[2024-11-25 21:47] LABS: BETA-HYDROXYBUTYRATE 5.6 mmol/L (0.0-0.3)
--- NOTE | 2024-11-25 21:47 | RAD_ITS ---
PROCEDURE: LUMBAR SPINE 2 OR 3 VIEWS 11/25/2024 REASON FOR EXAM: BACK PAIN TECHNIQUE: Procedure Code: RADSPLL Modality: DX Procedure: LUMBAR SPINE 2 OR 3 VIEWS COMPARISON: None. FINDINGS: No evidence of acute fracture or subluxation. Preserved vertebral body heights. Alignment is anatomic. Relatively well preserved disc spaces. Mild spondylotic changes with small anterior endplate osteophytes, and hypertrophic facet arthropathy. Grossly unremarkable soft tissues. RAD/Lumbar Spine 2 or 3 Views IMPRESSION: No evidence of fracture or malalignment. Mild spondylotic changes. Reading Location: [id number]
[2024-11-25] MEDS: Ensure Plus High Protein 120 ML LIQUID PO (22:01)
[2024-11-26 03:23] VITALS: BP 154/70; PULSE 81; RESP 18; TEMP 36.1; O2SAT 100
[2024-11-26 05:03] LABS: Hematocrit 31.7 % (40-54); Hemoglobin 10.2 g/dL (13.0-16.5); Immature Granulocytes Count 0.020 X10^3/uL (0.0-0.0); Mean Corp Hgb Conc 32.2 g/dL (32-36); Mean Corpuscular Volume 92.7 fL (80-94); Mean Platelet Vol. 11.5 fl (6.2-12.0); NRBC Flagged by Analyzer 0 % (0-5); POSITIVE COUNT YES; POSITIVE DIFFERENTIAL YES; Platelet Count 65 K/mm3 (150-450); RBC Distribution Width CV 16.8 % (11.6-14.6); RBC Distribution Width SD 56.9 fl (35.1-43.9); Red Blood Count 3.42 M/mm3 (4.6-6.2); White Blood Count 3.0 K/mm3 (4.4-11.0)
[2024-11-26 05:05] LABS: Differential Indicated SCAN CRITERIA MET
[2024-11-26 05:29] LABS: AST(SGOT) 165 U/L (<=37); Alanine Aminotransfer ALT/SGPT 66 U/L (<=46); Albumin, Serum 4.0 g/dL (3.4-4.8); Alkaline Phosphatase 79 U/L (40-129); Anion Gap 16 (5-15); BUN 11 mg/dL (4-19); BUN/Creat Ratio 14.0 RATIO (10-20); Calcium,Total 9.0 mg/dL (7.6-11.0); Carbon Dioxide 18.8 mmol/L (21.0-32.0); Chloride 95 mmol/L (98-108); Estimated Creatinine Clearance 135.32 ml/min (50-250); Globulin 2.9 g/dL (2.2-4.2); Glucose 166 mg/dL (70-99); Magnesium 1.9 mg/dL (1.5-2.2); Potassium 4.4 mmol/L (3.3-5.1)
[2024-11-26 05:46] LABS: Differential Comment SCANNED
[2024-11-26 05:47] LABS: Red Cell Morphology NORM C+C NORMAL (NORM C&C)
[2024-11-26 07:28] VITALS: BP 156/82; PULSE 87; RESP 16; TEMP 36.7; O2SAT 96
--- NOTE | 2024-11-26 08:42 | PCM.PN.HOSP ---
Reason for Visit Chief Complaint: Confusion Subjective Subjective Patient is a 64-year-old gentleman who presented to the emergency department with a 1 to 2-day history of confusion and problems with concentrating. He does admit to daily alcohol use Objective Data Objective Data Vital Signs: Vital Signs Temp Pulse Resp BP Pulse Ox O2 Del Method 98.1 F 87 16 156/82 H 96 Room Air 11/26/24 07:28 11/26/24 07:28 11/26/24 07:28 11/26/24 07:28 11/26/24 07:28 11/26/24 07:56 Oxygen Delivery Method Room Air Weight: 140 kg Body Mass Index (BMI) 41.8 Intake & Output: Intake and Output for Last 24 Hours 11/24/24 11/25/24 11/26/24 23:59 23:59 23:59 Intake Total 1224 / 1224 1075.5 / 1075.5 Output Total 500 / 500 350 / 350 Balance 724 / 724 725.5 / 725.5 Lab / Micro Data 11/26/24 04:55 11/26/24 04:55 Labs: Laboratory Results - last 24 hr 11/25/24 12:58: WBC 5.4, RBC 3.72 L, Hgb 11.2 L, Hct 34.6 L, MCV 93.0, MCH 30.1, MCHC 32.4, RDW Std Deviation 56.6 H, RDW Coeff of Allison 16.7 H, Plt Count 85 L, MPV 11.6, Immature Gran % (Auto) 0.600, Neut % (Auto) 78.4 H, Lymph % (Auto) 7.5 L, [place] % (Auto) 7.7, Eos % (Auto) 4.5, Baso % (Auto) 1.3 H, Absolute Neuts (auto) 4.2, Absolute Lymphs (auto) 0.40 L, Nucleated RBC % 0, PT 13.9, INR 1.0, APTT 31.7, Sodium 132 L, Potassium 4.6, Chloride 92 L, Carbon Dioxide 10.3 L, Anion Gap 30 H, BUN 11, Creatinine 0.70, Estim Creat Clear Calc 154.91, Est GFR (MDRD) Non-Af 103, BUN/Creatinine Ratio 15.3, Glucose 81, Lactic Acid 4.3 H*, Calcium 8.9, Total Bilirubin 1.00, AST 266 H, ALT 92 H, Alkaline Phosphatase 91, Ammonia 19.4, Total Protein 7.8, Albumin 4.5, Globulin 3.4, Albumin/Globulin Ratio 1.3, Lipase 66, Urine Color Yellow, Urine Clarity Clear, Urine pH 6.0, Ur Specific [place] 1.020, Urine Protein 100 H, Urine Glucose (UA) Normal, Urine Ketones 150 A*, Urine Occult Blood 25 H, Urine Nitrite Negative, Urine Bilirubin Negative, Urine Urobilinogen Normal, Ur Leukocyte Esterase Negative, Urine RBC 0-5 SEEN, Urine WBC 0-5 SEEN, Ur Squamous Epith Cells 0-5 SEEN, Urine Bacteria 0 SEEN, Urine Mucus RARE 11/25/24 15:00: Phosphorus 3.2, Magnesium 1.4 L, b-Hydroxybutyric mmol/L 6.6 H 11/25/24 15:25: Salicylates < 0.5 L, Ethyl Alcohol 49.2 H 11/25/24 15:40: Urine Opiates Screen NEGATIVE, U Buprenorphine Qual NEGATIVE, Ur Oxycodone Screen NEGATIVE, Urine Methadone Screen NEGATIVE, Urine Fentanyl Screen NEGATIVE, Ur Barbiturates Screen NEGATIVE, Ur Phencyclidine Scrn NEGATIVE, Ur Amphetamines Screen NEGATIVE, U Benzodiazepines Scrn NEGATIVE, Urine Cocaine Screen NEGATIVE, U Cannabinoids Screen NEGATIVE 11/25/24 18:05: Sodium 133, Potassium 5.2 H, Chloride 93 L, Carbon Dioxide 11.3 L, Anion Gap 29 H, BUN 10, Creatinine 0.82, Estim Creat Clear Calc 132.02, Est GFR (MDRD) Non-Af 98, BUN/Creatinine Ratio 11.9, Glucose 81, Lactic Acid 4.7 H*, Calcium 8.9 11/25/24 20:48: Sodium 130 L, Potassium 4.6, Chloride 94 L, Carbon Dioxide 12.0 L, Anion Gap 24 H, BUN 9, Creatinine 0.77, Estim Creat Clear Calc 140.59, Est GFR (MDRD) Non-Af 100, BUN/Creatinine Ratio 11.9, Glucose 127 H, Calcium 8.8, b-Hydroxybutyric mmol/L 5.6 H 11/26/24 04:55: WBC 3.0 L, RBC 3.42 L, Hgb 10.2 L, Hct 31.7 L, MCV 92.7, MCH 29.8, MCHC 32.2, RDW Std Deviation 56.9 H, RDW Coeff of Allison 16.8 H, Plt Count 65 L, MPV 11.5, Immature Gran % (Auto) 0.700, Neut % (Auto) 68.8, Lymph % (Auto) 13.1 L, [place] % (Auto) 16.4 H, Eos % (Auto) 0.3, Baso % (Auto) 0.7, Absolute Neuts (auto) 2.1, Absolute Lymphs (auto) 0.39 L, Nucleated RBC % 0, Differential Comment SCANNED, Platelet Estimate MOD DEC, RBC Morphology NORM C+C, Sodium 130 L, Potassium 4.4, Chloride 95 L, Carbon Dioxide 18.8 L, Anion Gap 16 H, BUN 11, Creatinine 0.80, Estim Creat Clear Calc 135.32, Est GFR (MDRD) Non-Af 99, BUN/Creatinine Ratio 14.0, Glucose 166 H, Lactic Acid 1.1, Calcium 9.0, Phosphorus 2.2 L, Magnesium 1.9, Total Bilirubin 1.08, AST 165 H, ALT 66 H, Alkaline Phosphatase 79, Total Protein 6.9, Albumin 4.0, Globulin 2.9, Albumin/Globulin Ratio 1.4, TSH 2.600 ABG Data ABG results: ABG 11/25/24 15:05 Specimen Type ART Sample Site R Radial pH 7.38 Bicarbonate Actual 12.7 L Total CO2 13 Base Excess -12 L O2 Saturation 98 ABG pCO2 21.3 L ABG pO2 110 H Martin Test Positive O2 Delivery Device Not entered Vent Mode Not entered Radiography Diagnostic Testing: Radiology Impression Abdomen/Pelvis CT 11/25/24 12:35 IMPRESSION: Hepatic steatosis with mild irregular surface contour suggestive of early fibrotic change. Correlate with liver function tests and consider elastography for further evaluation. No renal calculi or hydronephrosis. Colonic diverticulosis without evidence of acute diverticulitis. Moderate atherosclerosis and degenerative spinal changes. No acute intra-abdominal or pelvic abnormality identified. Reading Location: [address] Chest X-Ray 11/25/24 13:20 IMPRESSION: No acute abnormality Reading Location: [id number] Lumbar Spine X-Ray 11/25/24 21:47 IMPRESSION: No evidence of fracture or malalignment. Mild spondylotic changes. Reading Location: [facility] Physical Exam Narrative GENERAL: cooperative HEENT: Atraumatic; normocephalic EYES; Anicteric, Normal Conjunctiva NECK; supple, normal thyroid, RESPIRATORY: Diminished to auscultation CARDIOVASCULAR: Regular S1 S2, GI: soft, normoactive bowel sounds, : No Renal angle tenderness; EXTREMITIES: No edema, no clubbing, MUSCULOSKELETAL: no muscle wasting NEURO: Awake; no lateralizing signs. SKIN: No Rash PSYCH; Flat affect Assessment & Plan Assessment/Plan (1) Ketosis: (2) Elevated liver enzymes: (3) Lactic acidosis: (4) Hyponatremia: (5) Hypomagnesemia: (6) High anion gap metabolic acidosis: PLAN: Plan Patient is a 64-year-old gentleman who presented to the emergency department with a 1 to 2-day history of confusion and problems with concentrating. He does admit to daily alcohol use 1. Acute metabolic encephalopathy ?Multifactorial including patient alcohol use, electrolyte abnormalities including lactic acidosis as well as ketosis. Admitted to a monitored bed started on IV fluids with subsequent monitoring of electrolytes. Patient appears to be back to his baseline this a.m. 2. Hypomagnesemia ? Corrected per protocol 3. Alcohol induced hepatosteatosis ? Patient counseled on the need for cessation patient to follow-up with primary care physician for repeat imaging studies 4. Acute ketosis ? Secondary to combination of starvation ketosis as well as chronic alcohol use managed with IV fluid with subsequent monitoring of electrolytes 5. Hyponatremia ? Secondary to beer potomania 6. Lactic acidosis ? No evidence of infection this is thought to be secondary to volume depletion 7. Thrombocytopenia ? Secondary to chronic alcohol use will monitor with daily CBC with differential 8. Dysuria ? Urinalysis obtained on admission was negative for acute cystitis repeated patient urine studies 9. Acute transaminitis ? Secondary to alcohol use need for cessation once again stressed 10. Chronic alcohol dependence ? Patient was counseled on cessation offered information on the RAMP Program 11. Hypertension ? Blood pressure controlled, home medications continued with dose adjustment as needed 12. Dyspepsia ? Patient started on PPI 13. Class II obesity with BMI of 42 ? Complicating care weight loss 14. DVT prophylaxis ? Patient had been started on enoxaparin on admission discontinued given her low platelet count Time spent in the patient's overall evaluation,decision-making process, review of diagnostic data, adjustment of management, discussion with other providers, nursing nursing and ancillary staff involved in patient's care documentation, 50 Minutes Charges/Coding Visit Charges Inpatient E&M: 34390 [facility] [place] Hosp L3
[2024-11-26] MEDS: Ensure Plus High Protein 120 ML LIQUID PO ×4 (08:59→21:34)
[2024-11-26] MEDS: Magnesium Chloride 64 MG Delay Rel.Tablet 128 MG PO (09:00)
[2024-11-26 11:06] LABS: Squamous Epithelial Cells - UA 0 SEEN /hpf (0-5)
[2024-11-26 11:10] LABS: Color, Urine Amber (Yellow); Glucose, Dipstick Normal (Normal); Leukocyte Esterase-Dipstick 500 /ul (Negative); Nitrite-Dipstick Negative (Negative); Occult Blood-Urine 250 /ul (Negative); Protein-Dipstick 100 mg/dl (Negative); Specific Gravity, Urine 1.015 (1.002-1.030)
[2024-11-26 11:12] LABS: Ketone-Dipstick 150 mg/dl (Negative); Urine Bilirubin Dipstick 3 mg/dL (Negative)
[2024-11-26 11:18] LABS: Mucous, Urine 1+ /hpf (<or=2+); Red Blood Cells-Urine 25-50 SEEN /hpf (0-5)
[2024-11-26 11:28] VITALS: BP 141/77; PULSE 93; RESP 16; TEMP 36.7; O2SAT 99
--- NOTE | 2024-11-26 11:34 | CASEMGMT ---
Social Work SW met with pt and discussed pt alcohol use. Pt states that I got carried away a while back, but pt states he has stopped using alcohol at different times and then something happens and he restarts drinking. Pt states that since this medical incident pt will no longer be drinking. SW discussed with pt options of using a counselor or outpt services to assist with alcohol cessation and pt denies any assistance and refuses all resources. Pt states that he has no concerns that he will be able to stop drinking upon discharge. DANIELLE Almaraz
[2024-11-26 15:28] VITALS: BP 159/100; PULSE 90; RESP 16; TEMP 36.6; O2SAT 95
[2024-11-26 21:28] VITALS: BP 163/89; PULSE 87; RESP 18; TEMP 35.8; O2SAT 100
[2024-11-27 03:45] VITALS: BP 129/93; PULSE 93; RESP 18; TEMP 36.1; O2SAT 99
[2024-11-27 03:55] VITALS: BMI 42.2
[2024-11-27 05:48] LABS: Hematocrit 29.4 % (40-54); Hemoglobin 9.5 g/dL (13.0-16.5); Immature Granulocytes Count 0.010 X10^3/uL (0.0-0.0); Mean Corp Hgb Conc 32.3 g/dL (32-36); Mean Corpuscular Volume 92.5 fL (80-94); Mean Platelet Vol. 12.4 fl (6.2-12.0); NRBC Flagged by Analyzer 0 % (0-5); POSITIVE COUNT YES; POSITIVE DIFFERENTIAL YES; RBC Distribution Width CV 16.5 % (11.6-14.6); RBC Distribution Width SD 56.0 fl (35.1-43.9); Red Blood Count 3.18 M/mm3 (4.6-6.2); White Blood Count 2.7 K/mm3 (4.4-11.0)
[2024-11-27 06:03] LABS: Platelet Count 50 K/mm3 (150-450)
[2024-11-27 06:57] LABS: AST(SGOT) 121 U/L (<=37); Alanine Aminotransfer ALT/SGPT 51 U/L (<=46); Albumin, Serum 3.8 g/dL (3.4-4.8); Alkaline Phosphatase 73 U/L (40-129); Anion Gap 14 (5-15); BUN 10 mg/dL (4-19); BUN/Creat Ratio 12.9 RATIO (10-20); Bilirubin, Direct 0.40 mg/dL (0.00-0.30); Calcium,Total 9.3 mg/dL (7.6-11.0); Carbon Dioxide 21.8 mmol/L (21.0-32.0); Chloride 96 mmol/L (98-108); Estimated Creatinine Clearance 148.99 ml/min (50-250); Globulin 2.6 g/dL (2.2-4.2); Glucose 153 mg/dL (70-99); Potassium 3.8 mmol/L (3.3-5.1)
[2024-11-27 07:04] LABS: Magnesium 1.8 mg/dL (1.5-2.2)
--- NOTE | 2024-11-27 08:17 | PCM.PN.HOSP ---
Reason for Visit Chief Complaint: Confusion Subjective Subjective Patient still complains of dysuria urinalysis obtained the day prior came back consistent with acute cystitis subsequently started on ceftriaxone Objective Data Objective Data Vital Signs: Vital Signs Temp Pulse Resp BP Pulse Ox O2 Del Method 97.0 F L 93 18 129/93 H 99 Room Air 11/27/24 03:45 11/27/24 03:45 11/27/24 03:45 11/27/24 03:45 11/27/24 03:45 11/27/24 03:45 Oxygen Delivery Method Room Air Weight: 141.2 kg Body Mass Index (BMI) 42.2 Intake & Output: Intake and Output for Last 24 Hours 11/25/24 11/26/24 11/27/24 23:59 23:59 23:59 Intake Total 1224 / 1224 4475.5 / 4475.5 1000 / 1000 Output Total 500 / 500 1650 / 1650 200 / 200 Balance 724 / 724 2825.5 / 2825.5 800 / 800 Lab / Micro Data 11/27/24 04:51 11/27/24 04:51 Labs: Laboratory Results - last 24 hr 11/26/24 10:50: Urine Color Pau, Urine Clarity Sl. Cloudy, Urine pH 6.0, Ur Specific [place] 1.015, Urine Protein 100 H, Urine Glucose (UA) Normal, Urine Ketones 150 A*, Urine Occult Blood 250 H, Urine Nitrite Negative, Urine Bilirubin 3 H, Urine Urobilinogen 4 H, Ur Leukocyte Esterase 500 H, Urine RBC 25-50 SEEN, Urine WBC 10-25 SEEN, Ur Squamous Epith Cells 0 SEEN, Urine Bacteria 0 SEEN, Urine Mucus 1+ 11/27/24 04:51: WBC 2.7 L, RBC 3.18 L, Hgb 9.5 L, Hct 29.4 L, MCV 92.5, MCH 29.9, MCHC 32.3, RDW Std Deviation 56.0 H, RDW Coeff of Allison 16.5 H, Plt Count 50 L*, MPV 12.4 H, Immature Gran % (Auto) 0.400, Neut % (Auto) 71.6 H, Lymph % (Auto) 10.7 L, [place] % (Auto) 15.8 H, Eos % (Auto) 0.4, Baso % (Auto) 1.1 H, Absolute Neuts (auto) 2.0, Absolute Lymphs (auto) 0.29 L, Nucleated RBC % 0, Sodium 132 L, Potassium 3.8, Chloride 96 L, Carbon Dioxide 21.8, Anion Gap 14, BUN 10, Creatinine 0.73, Estim Creat Clear Calc 148.99, Est GFR (MDRD) Non-Af 101, BUN/Creatinine Ratio 12.9, Glucose 153 H, Calcium 9.3, Phosphorus 1.0 L*, Magnesium 1.8, Total Bilirubin 0.88, Direct Bilirubin 0.40 H, AST 121 H, ALT 51 H, Alkaline Phosphatase 73, Total Protein 6.4, Albumin 3.8, Globulin 2.6 Physical Exam Narrative GENERAL: cooperative HEENT: Atraumatic; normocephalic EYES; Anicteric, erythema of both eyes with some discharge NECK; supple, normal thyroid, RESPIRATORY: Diminished to auscultation CARDIOVASCULAR: Regular S1 S2, GI: soft, normoactive bowel sounds, : No Renal angle tenderness; EXTREMITIES: No edema, no clubbing, MUSCULOSKELETAL: no muscle wasting NEURO: Awake; no lateralizing signs. SKIN: No Rash PSYCH; Flat affect Assessment & Plan Assessment/Plan (1) Ketosis: (2) Elevated liver enzymes: (3) Lactic acidosis: (4) Hyponatremia: (5) Hypomagnesemia: (6) High anion gap metabolic acidosis: PLAN: Plan Patient is a 64-year-old gentleman who presented to the emergency department with a 1 to 2-day history of confusion and problems with concentrating. He does admit to daily alcohol use 1. Acute metabolic encephalopathy ?Multifactorial including patient alcohol use, electrolyte abnormalities including lactic acidosis as well as ketosis. Admitted to a monitored bed started on IV fluids with subsequent monitoring of electrolytes. Patient appears to be back to his baseline this a.m. 2. Acute cystitis ? Patient started on ceftriaxone 3. Hypomagnesemia ? Corrected per protocol 4. Acute ketosis ? Secondary to combination of starvation ketosis as well as chronic alcohol use managed with IV fluid with subsequent monitoring of electrolytes 5. Hyponatremia ? Secondary to beer potomania 6. Hypophosphatemia ? Corrected per protocol 7. Alcohol induced hepatosteatosis ? Patient counseled on the need for cessation patient to follow-up with primary care physician for repeat imaging studies 8. Lactic acidosis ? No evidence of infection this is thought to be secondary to volume depletion 9. Thrombocytopenia ? Secondary to chronic alcohol use will monitor with daily CBC with differential ? 11/27/2024; patient platelet count down to 50 10. Acute transaminitis ? Secondary to alcohol use need for cessation once again stressed 11. Chronic alcohol dependence ? Patient was counseled on cessation offered information on the RAMP Program 12. Hypertension ? Blood pressure controlled, home medications continued with dose adjustment as needed 13. Dyspepsia ? Patient started on PPI 14. Class II obesity with BMI of 42 ? Complicating care weight loss 14. DVT prophylaxis ? Patient had been started on enoxaparin on admission discontinued given her low platelet count Time spent in the patient's overall evaluation,decision-making process, review of diagnostic data, adjustment of management, discussion with other providers, nursing nursing and ancillary staff involved in patient's care documentation, 52 Minutes Charges/Coding Visit Charges Inpatient E&M: 24901 Subs Hosp L3
[2024-11-27 09:25] VITALS: BP 114/78; PULSE 93; RESP 15; TEMP 36.9; O2SAT 99
[2024-11-27] MEDS: Potassium Phosphate 40 MM in 0.9% Normal Saline (500mL Bag) 500 ML 62.5 MM IV (09:28)
[2024-11-27] MEDS: Na Biphos/Potassium Phosphate PACKET 1 PACKET PO ×2 (09:42→21:27)
[2024-11-27] MEDS: Magnesium Chloride 64 MG Delay Rel.Tablet 128 MG PO (09:42)
[2024-11-27] MEDS: Ensure Plus High Protein 120 ML LIQUID PO ×4 (09:43→21:25)
[2024-11-27] MEDS: Ciprofloxacin 0.3% 2.5ml Bottle 2 DRP OPHTHALMIC ×4 (12:14→21:26)
[2024-11-27] MEDS: 0.9% Saline Lock 10 ML Syringe IV (12:15)
[2024-11-27 14:44] VITALS: BP 137/74; PULSE 75; RESP 15; TEMP 36.6; O2SAT 99
[2024-11-27 21:19] VITALS: BP 160/91; PULSE 84; RESP 18; TEMP 36.1; O2SAT 100
--- NOTE | 2024-11-28 00:10 | NURSING ---
This RN requested store warehouse associate and Madison Kwon NP to bedside at this time d/t pt becoming increasingly agitated. Pt confused, hallucinating, wanting to leave, adamant about getting OOB (unsafe to get OOB at this time d/t previously given Ativan and pt being unsteady). grocery supervisor and Madison to bedside. IV Phenobarb ordered.
[2024-11-28] MEDS: Ciprofloxacin 0.3% 2.5ml Bottle 2 DRP OPHTHALMIC ×6 (01:42→20:54)
[2024-11-28 03:23] VITALS: BP 143/92; PULSE 81; RESP 18; TEMP 36.1; O2SAT 100
[2024-11-28 05:55] LABS: Hematocrit 31.8 % (40-54); Hemoglobin 10.2 g/dL (13.0-16.5); Immature Granulocytes Count 0.030 X10^3/uL (0.0-0.0); Mean Corp Hgb Conc 32.1 g/dL (32-36); Mean Corpuscular Volume 93.8 fL (80-94); Mean Platelet Vol. 13.5 fl (6.2-12.0); NRBC Flagged by Analyzer 0 % (0-5); POSITIVE COUNT YES; POSITIVE DIFFERENTIAL YES; Platelet Count 62 K/mm3 (150-450); RBC Distribution Width CV 17.2 % (11.6-14.6); RBC Distribution Width SD 59.1 fl (35.1-43.9); Red Blood Count 3.39 M/mm3 (4.6-6.2); White Blood Count 4.0 K/mm3 (4.4-11.0)
[2024-11-28 05:58] VITALS: BMI 42.8
[2024-11-28 06:45] LABS: Anion Gap 13 (5-15); BUN 8 mg/dL (4-19); BUN/Creat Ratio 11.2 RATIO (10-20); Calcium,Total 9.3 mg/dL (7.6-11.0); Carbon Dioxide 23.7 mmol/L (21.0-32.0); Chloride 98 mmol/L (98-108); Estimated Creatinine Clearance 146.20 ml/min (50-250); Glucose 133 mg/dL (70-99); Potassium 3.8 mmol/L (3.3-5.1)
--- NOTE | 2024-11-28 07:44 | EKG12_ITS ---
Test Reason : CHANGE Blood Pressure : */* mmHG Vent. Rate : 85 BPM Atrial Rate : * BPM P-R Int : * ms QRS Dur : 82 ms QT Int : 368 ms P-R-T Axes : * 37 28 degrees QTcB Int : 437 ms Atrial fibrillation with a competing junctional pacemaker Junctional ST depression, probably normal Abnormal ECG When compared with ECG of 25-Nov-2024 17:51, ST elevation now present in Inferior leads Confirmed by BINTA BERMUDEZ, MICHAEL ([id number]), city editor MARCELINA GAY ([id number]) on 12/01/2024 10:06:00 AM Referred By: Confirmed By: MICHAEL JUDD MD
[2024-11-28] MEDS: Ensure Plus High Protein 120 ML LIQUID PO ×3 (10:08→20:55)
[2024-11-28] MEDS: Magnesium Chloride 64 MG Delay Rel.Tablet 128 MG PO (10:08)
[2024-11-28] MEDS: Na Biphos/Potassium Phosphate PACKET 1 PACKET PO ×2 (10:08→20:55)
[2024-11-28 10:13] VITALS: BP 140/75; PULSE 80; RESP 18; TEMP 36.8; O2SAT 100
--- NOTE | 2024-11-28 10:16 | ECHOCS_ITS ---
Reason For Study Reason For Study: A. fib Procedure This was a 2D Doppler, Color Flow transthoracic echocardiogram. The study was technically difficult. Exam performed portable in patient room. Left Ventricle Normal LV size. Left ventricular systolic function is normal. The left ventricular ejection fraction is 55 %. Right Ventricle Normal RV size. Normal systolic function. Atria Normal left atrium. Normal right atrium. Mitral Valve Normal mitral valve. Tricuspid Valve Normal tricuspid valve. Aortic Valve Normal aortic valve. Pulmonic Valve Normal pulmonic valve. Great Vessels Normal aortic root. The pulmonary artery is normal size. Inferior vena cava collapse with respiration. Pericardium/Pleural No pericardial effusion. Medication Diluted definity 1.0ml given slow IV push to enhance endocardial definition. MMode/2D Measurements & Calculations LVIDd: 5.3 cm IVSd: 1.1 cm Ao root diam: 3.7 cm LVIDs: 3.5 cm LVPWd: 1.0 cm FS: 35.0 % LVAd ap4: 37.9 cm2 LVAd ap2: 29.2 cm2 SV(MOD-sp4): 66.5 ml LVLd ap4: 8.3 cm LVLd ap2: 7.8 cm SI(MOD-sp4): 25.7 ml/m2 EDV(MOD-sp4): 145.2 ml EDV(MOD-sp2): 88.6 ml EDV(sp4-el): 146.8 ml EDV(sp2-el): 93.3 ml LVAs ap4: 27.0 cm2 LVAs ap2: 18.8 cm2 LVLs ap4: 7.8 cm LVLs ap2: 6.9 cm ESV(MOD-sp4): 78.7 ml ESV(MOD-sp2): 41.3 ml ESV(sp4-el): 80.0 ml ESV(sp2-el): 43.5 ml EF(MOD-sp4): 45.8 % EF(MOD-sp2): 53.4 % EF(sp4-el): 45.5 % SV(MOD-sp2): 47.3 ml SV(sp4-el): 66.8 ml LA dimension(2D): 4.2 cm SI(MOD-sp2): 18.3 ml/m2 TAPSE: 1.9 cm Time Measurements MV dec time: 0.23 sec Doppler Measurements & Calculations MV E max roberto carlos: 91.1 cm/sec Lat Peak E' Roberto Carlos: 10.8 cm/sec Med Peak E' Roberto Carlos: 10.2 cm/sec MV A max roberto carlos: 84.6 cm/sec E/E' lat: 8.4 E/E' med: 8.9 MV E/A: 1.1 Ao V2 max: 127.1 cm/sec LV V1 max: 110.3 cm/sec MV dec slope: 400.3 cm/sec2 Ao max P.5 mmHg LV V1 max P.9 mmHg PA V2 max: 99.2 cm/sec ECHO/Echo Complete W/ Contrast Interpretation Summary Normal LV size. Left ventricular systolic function is normal. The left ventricular ejection fraction is 55 %. Contrast injection was performed. The study was technically difficult. Ordering Physician: Byron Jennings Performed By: Padma Brown RDCS
--- NOTE | 2024-11-28 10:21 | PCM.PN.HOSP ---
Reason for Visit Chief Complaint: Confusion Subjective Subjective Patient remains on ceftriaxone for suspected cystitis. Patient dysuria has significantly improved. Patient was noted to be in A-fib/flutter overnight. Ordered TSH and 2D echo patient started on beta-blockers as well as apixaban Objective Data Objective Data Vital Signs: Vital Signs Temp Pulse Resp BP Pulse Ox O2 Del Method 98.2 F 80 18 140/75 H 100 Room Air 11/28/24 10:13 11/28/24 10:13 11/28/24 10:13 11/28/24 10:13 11/28/24 10:13 11/28/24 10:13 Oxygen Delivery Method Room Air Weight: 143.3 kg Body Mass Index (BMI) 42.8 Intake & Output: Intake and Output for Last 24 Hours 11/26/24 11/27/24 11/28/24 23:59 23:59 23:59 Intake Total 4475.5 / 4475.5 3763.3333 / 3763.3333 Output Total 1650 / 1650 900 / 900 950 / 950 Balance 2825.5 / 2825.5 2863.3333 / 2863.3333 -950 / -950 Lab / Micro Data 11/28/24 04:50 11/28/24 04:50 Labs: Laboratory Results - last 24 hr 11/28/24 04:50: WBC 4.0 L, RBC 3.39 L, Hgb 10.2 L, Hct 31.8 L, MCV 93.8, MCH 30.1, MCHC 32.1, RDW Std Deviation 59.1 H, RDW Coeff of Allison 17.2 H, Plt Count 62 L, MPV 13.5 H, Immature Gran % (Auto) 0.800, Neut % (Auto) 67.7, Lymph % (Auto) 13.2 L, [place] % (Auto) 16.5 H, Eos % (Auto) 1.0, Baso % (Auto) 0.8, Absolute Neuts (auto) 2.7, Absolute Lymphs (auto) 0.52 L, Nucleated RBC % 0, Sodium 134, Potassium 3.8, Chloride 98, Carbon Dioxide 23.7, Anion Gap 13, BUN 8, Creatinine 0.75, Estim Creat Clear Calc 146.20, Est GFR (MDRD) Non-Af 101, BUN/Creatinine Ratio 11.2, Glucose 133 H, Calcium 9.3 Physical Exam Narrative GENERAL: cooperative HEENT: Atraumatic; normocephalic EYES; Anicteric, erythema of both eyes with some discharge NECK; supple, normal thyroid, RESPIRATORY: Diminished to auscultation CARDIOVASCULAR: Regular S1 S2, GI: soft, normoactive bowel sounds, : No Renal angle tenderness; EXTREMITIES: No edema, no clubbing, MUSCULOSKELETAL: no muscle wasting NEURO: Awake; no lateralizing signs. SKIN: No Rash PSYCH; Flat affect Neck supple Assessment & Plan Assessment/Plan (1) Ketosis: (2) Elevated liver enzymes: (3) Lactic acidosis: (4) Hyponatremia: (5) Hypomagnesemia: (6) High anion gap metabolic acidosis: PLAN: Plan Patient is a 64-year-old gentleman who presented to the emergency department with a 1 to 2-day history of confusion and problems with concentrating. He does admit to daily alcohol use 1. Acute metabolic encephalopathy ?Multifactorial including patient alcohol use, electrolyte abnormalities including lactic acidosis as well as ketosis. Admitted to a monitored bed started on IV fluids with subsequent monitoring of electrolytes. Patient appears to be back to his baseline this a.m. ? Patient level of sensorium markedly improved 2. Acute cystitis ? Patient started on ceftriaxone ? 11/28/2024; patient urine cultures apparently not sent repeat ordered 3. New onset A-fib/flutter ? Patient started on Lopressor ordered 2D echo and TSH in addition to held off initiating systemic anticoagulation patient [id number] 2 score is only 1 (hypertension) 3. Hypomagnesemia ? Corrected per protocol 4. Acute ketosis ? Secondary to combination of starvation ketosis as well as chronic alcohol use managed with IV fluid with subsequent monitoring of electrolytes 5. Hyponatremia ? Secondary to beer potomania 6. Hypophosphatemia ? Corrected per protocol 7. Alcohol induced hepatosteatosis ? Patient counseled on the need for cessation patient to follow-up with primary care physician for repeat imaging studies 8. Lactic acidosis ? No evidence of infection this is thought to be secondary to volume depletion 9. Thrombocytopenia ? Secondary to chronic alcohol use will monitor with daily CBC with differential ? 11/27/2024; patient platelet count down to 50 10. Acute transaminitis ? Secondary to alcohol use need for cessation once again stressed 11. Chronic alcohol dependence ? Patient was counseled on cessation offered information on the RAMP Program 12. Hypertension ? Blood pressure controlled, home medications continued with dose adjustment as needed 13. Dyspepsia ? Patient started on PPI 14. Class II obesity with BMI of 42 ? Complicating care weight loss 14. DVT prophylaxis ? Patient had been started on enoxaparin on admission discontinued given her low platelet count Time spent in the patient's overall evaluation,decision-making process, review of diagnostic data, adjustment of management, discussion with other providers, nursing nursing and ancillary staff involved in patient's care documentation, 40 Minutes Charges/Coding Visit Charges Inpatient E&M: 81907 Subs Hosp L2
--- NOTE | 2024-11-28 17:15 | NURSING ---
This RN into room after CHEMICAL MAKER called to say pt was agitated and had ripped out his IV. Upon entering room noted pt sitting in recliner demanding a shower or he was leaving. This RN informed pt that an order from the physician was needed d/t the heart monitor being on per hospital policy. This RN left room to contact Dr Jennings and received an order for shower privileges. Upon entering back into room, CHEMICAL MAKER and another RN present and pts chair alarm alarming. Pt was standing in corner of room yelling and cursing at staff. Informed pt that his behavior will not be tolerated and staff is only trying to help pt. This RN attempting to assist pt into bathroom x1 with walker and is very unsteady. Pt refusing help and becoming agitated stating if I fall I fall it's my own damn fault. Educated on fall precautions and that we are only trying to prevent a negative event (ie: fall with injury) from occurring to pt and harming him. Pt verbalized understanding but continues to refuse to allow staff to help. Pt showered, shaved, changed gown, new bed & chair linens. Pt now more calm sitting up in chair with chair alarm on & working, call light and belongings in reach.
[2024-11-28 18:00] VITALS: BP 149/91; PULSE 86; RESP 18; TEMP 36.8; O2SAT 100
[2024-11-28 20:18] VITALS: BP 140/69; PULSE 86; RESP 18; TEMP 36.9; O2SAT 99
--- NOTE | 2024-11-28 20:30 | NURSING ---
CONSERVATION SCIENCE OFFICER notified this RN that pt IV was off. This RN immediately to pt room. Pt found to have an IV site that had an intact catheter, but the hub off of the loop was disconnected. Pt was bleeding from the IV cannula. This RN occluded site while CONSERVATION SCIENCE OFFICER went to get supplies. Once supplies were retrieved, the remaining loop was removed and a new, primed looped was attached. IV with good blood return and flushed well. IV site wrapped with CONCETTA wraps. Pt gown changed.
[2024-11-28 22:12] VITALS: BP 166/89; PULSE 76; RESP 18; TEMP 36.6; O2SAT 100
[2024-11-29] VITALS (25 sets, daily range): BP systolic 86–156; BP diastolic 55–98; PULSE 53–109; RESP 16–23; TEMP 36–36.6; O2SAT 92–100; BMI 43.4
[2024-11-29] MEDS: 0.9% Saline Lock 10 ML Syringe IV ×3 (00:05→06:03)
--- NOTE | 2024-11-29 00:10 | NURSING ---
This RN requested house rn and Madison Kwon NP to bedside at this time d/t pt becoming increasingly agitated. Pt confused, hallucinating, wanting to leave, adamant about getting OOB (unsafe to get OOB at this time d/t previously given Ativan and pt being unsteady). program supervisor and Madison to bedside. IV Phenobarb ordered.
--- NOTE | 2024-11-29 00:25 | PCM.HOSP.N ---
Hospitalist Note NIghtshift RN reports CIWA scoring 18 for hallucinations, both visual and auditory, agitation, tremors, and confusion to time and location. PRN lorazepam given PO x2 earlier tonight. Just notified by propellant charge zone assembler that pt is refusing redirection and persistent to leaving the hospital. Pt is oriented to self only. RN just administered IV lorazepam 2mg prior to my arrival to room. Pt is unsteady, argumentative and only settles once male staff enter the room. I ordered phenobarbital 100mg IV x1 now. He agrees to lay back in bed. Considering phenobarb PO taper, to be discussed with hospitalist on shift. 0100-Reviewed case with , phenobarb taper ordered, and additionallorazepam 2mg IV x1 now as pt still trying to get out of bed with hallucinations per propellant charge zone assembler.
--- NOTE | 2024-11-29 04:51 | PCM.PN.BLA ---
Progress Note 16:51am Code michael called because patient became more agitated and restless. On my review,security in patient's room and patient in bilateral soft restraints. Patient was started on alcohol withdrawal protocol with phenobarbital earlier this evening. He has received IV ativan and phenobarbital but still remains very agitated. Will transfer to ICU and start on precedex drip due to concerns for hyperactive acute alcohol withdrawal with high risk for DTs. Consult critical care .
--- NOTE | 2024-11-29 05:10 | NURSING ---
0430- pt started getting agitated and combative again. pt voided pt in urinal but wanted to get up. pt kicking and verbally inappropriate with staff. called jerrica rodriguez on pt. paper supervisor, security and hospitalist came. pt got IV dose of ativan. pt still trying to get up and trying to kick staff. put pt on soft wrist restraints and ordered transfer pt to ICU and ordered Precedex gtt. belongings sent with pt to ICU.
[2024-11-29] MEDS: Ciprofloxacin 0.3% 2.5ml Bottle 2 DRP OPHTHALMIC ×5 (05:11→21:31)
--- NOTE | 2024-11-29 05:12 | NURSING ---
provided jesus, pt's update on pt's condition and his move to icu.
[2024-11-29] MEDS: dexMEDEtomidine 400 MCG in 0.9% Normal Saline (100mL Bag) 96 ML 17.9 MCG CONT INF (05:15)
[2024-11-29 06:17] LABS: Hematocrit 28.1 % (40-54); Hemoglobin 9.1 g/dL (13.0-16.5); Immature Granulocytes Count 0.020 X10^3/uL (0.0-0.0); Mean Corp Hgb Conc 32.4 g/dL (32-36); Mean Corpuscular Volume 93.4 fL (80-94); Mean Platelet Vol. 12.5 fl (6.2-12.0); NRBC Flagged by Analyzer 0 % (0-5); POSITIVE COUNT YES; POSITIVE DIFFERENTIAL YES; Platelet Count 75 K/mm3 (150-450); RBC Distribution Width CV 17.3 % (11.6-14.6); RBC Distribution Width SD 58.4 fl (35.1-43.9); Red Blood Count 3.01 M/mm3 (4.6-6.2); White Blood Count 2.7 K/mm3 (4.4-11.0)
[2024-11-29 06:50] LABS: Anion Gap 11 (5-15); BUN 9 mg/dL (4-19); BUN/Creat Ratio 11.7 RATIO (10-20); Calcium,Total 8.9 mg/dL (7.6-11.0); Carbon Dioxide 23.5 mmol/L (21.0-32.0); Chloride 101 mmol/L (98-108); Estimated Creatinine Clearance 149.26 ml/min (50-250); Glucose 136 mg/dL (70-99); Potassium 3.3 mmol/L (3.3-5.1)
--- NOTE | 2024-11-29 09:33 | PN.HOSP_ITS ---
Reason for Visit Chief Complaint: Confusion Subjective Subjective Patient very tired after receiving IV phenobarbital and now on Precedex drip, reportedly slowly waking up and answering questions more appropriately, resting comfortably at time of evaluation Objective Data Objective Data Vital Signs: Vital Signs Temp Pulse Resp BP Pulse Ox O2 Del Method 96.8 F L 54 L 16 107/63 96 Room Air 11/29/24 08:00 11/29/24 08:00 11/29/24 08:00 11/29/24 08:00 11/29/24 08:00 11/29/24 08:00 Oxygen Delivery Method Room Air Weight: 145.2 kg Body Mass Index (BMI) 43.4 Intake & Output: Intake and Output for Last 24 Hours 11/27/24 11/28/24 11/29/24 23:59 23:59 23:59 Intake Total 3763.3333 / 3763.3333 2433.75 / 2433.75 1056.40 / 1056.40 Output Total 900 / 900 1350 / 1350 Balance 2863.3333 / 2863.3333 1083.75 / 1083.75 1056.40 / 1056.40 Lab / Micro Data 11/29/24 06:05 11/29/24 06:05 Labs: Laboratory Results - last 24 hr 11/28/24 04:50: TSH 2.100 11/29/24 06:05: WBC 2.7 L, RBC 3.01 L, Hgb 9.1 L, Hct 28.1 L, MCV 93.4, MCH 30.2, MCHC 32.4, RDW Std Deviation 58.4 H, RDW Coeff of Allison 17.3 H, Plt Count 75 L, MPV 12.5 H, Immature Gran % (Auto) 0.700, Neut % (Auto) 63.2, Lymph % (Auto) 13.4 L, [place] % (Auto) 19.8 H, Eos % (Auto) 2.2, Baso % (Auto) 0.7, Absolute Neuts (auto) 1.7 L, Absolute Lymphs (auto) 0.36 L, Nucleated RBC % 0, Sodium 136, Potassium 3.3, Chloride 101, Carbon Dioxide 23.5, Anion Gap 11, BUN 9, Creatinine 0.74, Estim Creat Clear Calc 149.26, Est GFR (MDRD) Non-Af 101, BUN/Creatinine Ratio 11.7, Glucose 136 H, Calcium 8.9 Micro: Microbiology 11/26/24 10:50 Urine, Clean Catch Urine Culture - Preliminary Mixed Gram Positive Organisms Radiography Diagnostic Testing: Radiology Impression Echocardiogram 11/28/24 10:16 Interpretation Summary Normal LV size. Left ventricular systolic function is normal. The left ventricular ejection fraction is 55 %. Contrast injection was performed. The study was technically difficult. Ordering Physician: Byron Jennings Performed By: Padma Brown RDCS Physical Exam Narrative General: Resting comfortably HEENT: Atraumatic, normocephalic Eyes: Resting comfortably with eyes closed Neck: Supple Respiratory: Clear to auscultation bilaterally, normal respiratory effort Cardiovascular: Irregular irregular GI: Soft, nontender, nondistended Extremities: No pitting edema Musculoskeletal: Moving all extremities Neuro: No overt focal neurological deficits though patient unable to cooperate with exam Skin: No rashes appreciated Psych: Unable to cooperate due to mental status Assessment & Plan Assessment/Plan (1) Agitation: PLAN: Plan 64 y/o M with a history of hypertension, anemia, thrombocytopenia, alcohol use who presented to [facility] ED 11/29/2024 for confusion and feeling unwell over 2 weeks with poor p.o. intake. In the ED he was found to have a high anion gap with a low bicarb with an elevated beta hydroxybutyrate and ketones in his urine as well as an elevated lactic. It was felt that his acid-base disorder was complex and due to elevated lactic acid as well as alcoholic ketosis and starvation ketosis and that his metabolic encephalopathy was from alcohol use in addition to his electrolyte abnormalities. Patient admitted to [facility]. #Acute agitation - Patient's initial metabolic encephalopathy resolved however overnight he became acutely agitated and combative, code michael called -Patient moved to ICU and placed on Precedex drip -Patient started on phenobarb taper -Continue CIWA #New onset afib - Patient started on Lopressor -Echocardiogram with normal LV and EF of 55% -TSH within normal limits -CHADS2-VASc only 1 so patient not started on anticoagulation but may need to discuss risks and benefits of this option prior to discharge, patient presently unable to participate in this conversation # Alcohol use disorder -Patient offered information on the rehab program -Advise cessation #pancytopenia - Has been fairly stable since admission -Likely secondary to chronic alcohol use and underlying liver dysfunction -Recommend cessation -Can consider outpt f/u #Hypertension - Will add holding parameters to patient's lisinopril given he has been started on Precedex and phenobarbital #Abnormal UA-UTI ruled out - Urine culture with mixed gram-positive organisms, Rocephin discontinued # Acute metabolic encephalopathy?resolved - Suspected to be multifactorial on presentation due to alcohol use, ketosis and electrolyte abnormalities as well as starvation -Patient resolved with IVF and glucose # High anion gap monomelic acidosis?resolved - Multifactorial on presentation - Suspected to be combination of alcoholic ketosis with starvation ketosis on top of lactic acidosis - This corrected with IV fluids and supportive care #DVT ppx: SCDs Rosalind Gamez MD Charges/Coding Visit Charges Inpatient E&M: 47156 Subs Hosp L2
[2024-11-29] MEDS: dexMEDEtomidine 400 MCG in 0.9% Normal Saline (100mL Bag) 96 ML 7.2 MCG CONT INF (10:58)
--- NOTE | 2024-11-29 11:46 | CON.PCM.CC_ITS ---
HPI Consult Data Date of Consult: 11/29/24 HPI Narrative Reason for Consultation: confusional state HPI Narrative: SABRINA AUGUSTIN, is a 64 M heavy drinker but apparently without prior history of alcohol withdrawal problems was admitted 4 days ago with confusion and metabolic derangements attributed to alcoholic ketoacidosis. He develeped abrupt agitation and combativeness last night thus was transferred to ICU and placed on precedex infusion to manage. No other history can be obtained from the patient due to his state but staff indicate his behavior has been easily managed since. [facility] Medical History Morbid obesity Anemia Thrombocytopenia HTN (hypertension) Home Medications ?Medication ?Instructions ?Recorded ?Last Taken ?Type lisinopril 20 mg tablet 20 mg PO TID 11/13/22 History amlodipine 5 mg tablet 5 mg PO DAILY 30 days #30 ta bs 07/01/24 Unknown Rx Held on 11/25/24. Instructions: has not been filled magnesium oxide 400 mg (241.3 mg 400 mg PO DAILY 11/25 Unknown History magnesium) tablet Allergy/AdvReac Type Severity Reaction Status Date / Time lincomycin (From Lincocin) Allergy Unknown Verified 11/25/24 12:09 Penicillins Allergy JOINT PAIN Verified 11/25/24 12:09 Family History no significant family his Surgical History no surgical history Social History (Updated 11/25/24 @ 21:[address] Екатерина Roach, DO) household members: spouse housing: house Smoking Status: Former smoker alcohol intake: current alcohol intake frequency: 3 or more drinks per day substance use type: does not use ROS Review of Systems ROS Unobtainable: due to encephalopathy Objective Data Objective Data Vital Signs: Vital Signs Last response 3 Temperature 36.0 C L 11/29/24 08:00 Temperature Source Temporal 11/29/24 08:00 Pulse Rate 53 L 11/29/24 11:00 Respiratory Rate 19 H 11/29/24 11:00 Respiratory Effort Normal, Non-Labored 11/28/24 20:00 Respiratory Depth Normal 11/28/24 20:00 Respiratory Pattern Normal 11/28/24 20:00 Blood Pressure 86/68 L 11/29/24 11:00 Blood Pressure Mean 74 11/29/24 11:00 Blood Pressure Source Monitor 11/29/24 11:00 Blood Pressure Position Semi-Fowlers 10/18/25 11:00 Blood Pressure Location Right Arm 11/29/24 11:00 Pulse Ox 94 11/29/24 11:00 Oxygen Delivery Method Room Air 11/29/24 11:00 I&O: I&O Last 24 Hours 3 11/28/24 11/28/24 11/29/24 11:59 23:59 11:59 Intake Total 862.5 / 2433.75 1571.25 / 2433.75 1697.62 / 1697.62 Output Total 950 / 1350 400 / 1350 Balance -87.5 / 1083.75 1171.25 / 1083.75 1697.62 / 1697.62 I&O: Total Stay 3 11/25/24 12:08 thru 11/29/24 11:25 Intake Total 73753.2033 Output Total 4400 Balance 9194.2033 Current Meds Ordered / Administered: Current meds ordered / Administered 3 Generic Name Dose Route Start Last Admin Trade Name Freq PRN Reason Stop Dose Admin Ciprofloxacin HCl 2 drp 11/27/24 10:00 11/29/24 10:58 Ciprofloxacin 0.3% 2.5ml Bottle OPHTHALMIC 2 drp Q4 NATASHA Administration Dicyclomine HCl 20 mg 11/29/24 01:58 Dicyclomine 10 Mg Capsule PO Q6H PRN PRN abdominal discomfort Folic Acid 1 mg 11/29/24 08:00 11/29/24 08:03 Folic Acid 1 Mg Tablet PO Not Given DAILY@0800 NATASHA Gabapentin 300 mg 11/29/24 01:58 Gabapentin 300 Mg Capsule PO Q8H PRN PRN moderate to severe anxiety Hydroxyzine Pamoate 50 mg 11/29/24 01:58 Hydroxyzine Lor 25 Mg Capsule PO Q4H PRN PRN mild anxiety Dextrose/Lactated Ringer's 1,000 mls @ 75 mls/hr 11/25/24 17:14 11/29/24 11:25 IV 75 mls/hr .[id number] NATASHA Infusion Sodium Chloride 250 mls @ 15 mls/hr 11/25/24 17:19 11/28/24 14:43 IV Infused .[id number] PRN Infusion Saline Flush Sodium Chloride 250 mls @ 15 mls/hr 11/25/24 17:19 IV .[id number] PRN Additional IVPB Infusion Dexmedetomidine HCl 400 mcg/ 100 mls @ 17.913 mls/hr 11/29/24 05:01 11/29/24 10:58 Sodium Chloride CONT INF 0.2 mcg/kg/hr .[id number] NATASHA 7.2 mls/hr Protocol Administration 0.5 MCG/KG/HR Lisinopril 20 mg 11/25/24 22:00 11/29/24 10:09 Lisinopril 20 Mg Tablet PO Not Given BID [facility] Protocol Loperamide HCl 2 mg 11/29/24 01:58 Loperamide 2 Mg Capsule PO Q4H PRN PRN DIARRHEA/LOOSE STOOLS Lorazepam 1 mg 11/29/24 09:25 Lorazepam 2 Mg/Ml Syringe IV Q2H PRN PRN CIWA score >/=12 Protocol Lorazepam 1 mg 11/29/24 09:25 Lorazepam 1 Mg Tablet PO Q2H PRN PRN CIWA score >/=12 Protocol Magnesium Chloride 128 mg 11/26/24 10:00 11/29/24 10:09 Magnesium Chloride 64 Mg Delay Rel.Tablet PO Not Given DAILY [facility] Nutritional Formula (Lactose Free) 120 ml 11/25/24 22:00 11/29/24 10:08 Ensure Plus High Protein 120 Ml Liquid PO Not Given 4X/DAY [facility] Ondansetron HCl 4 mg 11/25/24 17:14 11/25/24 18:18 Ondansetron 4 Mg/2 Ml Vial IV 4 mg Q8H PRN PRN Administration NAUSEA/VOMITING Oxycodone HCl 5 mg 11/25/24 21:47 11/26/24 08:59 Oxycodone 5 Mg Tablet PO 5 mg Q6H PRN PRN Administration Pain Score 4-10 or Pre PT/OT Pantoprazole Sodium 40 mg 11/26/24 10:00 11/29/24 10:09 Pantoprazole Sodium 40 Mg Tablet PO Not Given BID [facility] Phenobarbital 97.2 mg 11/29/24 04:30 11/29/24 10:08 Phenobarbital 32.4 Mg Tablet PO 12/03/24 12:29 Not Given Q4H NATASHA Taper Potassium Phos/Sodium Phos 1 packet 11/27/24 10:00 11/29/24 10:09 Na Biphos/Potassium Phosphate Packet PO Not Given BID [facility] Senna/Docusate Sodium 2 tablet 11/25/24 17:14 Senna/Docusate Sodium 1 Tablet PO BID PRN PRN Constipation Sodium Chloride 10 - 40 ml 11/25/24 17:19 11/29/24 06:03 0.9% Saline Lock 10 Ml Syringe IV 10 ml UD PRN Administration SALINE FLUSH Thiamine HCl 100 mg 11/29/24 08:00 11/29/24 08:03 Thiamine Hydrochloride 100 Mg Tablet PO Not Given DAILYCM [facility] Trazodone HCl 100 mg 11/29/24 01:58 Trazodone 100 Mg Tablet PO QHS PRN PRN INSOMNIA Physical Exam Const Orientation / Consciousness: obtunded Nutritional Appearance: obese HEENT normocephalic and head/scalp atraumatic Head and Scalp: normal to inspection Nose: external nose normal Eyes PERRL and EOMs intact bilaterally Neck full ROM Chest inspection of chest normal Resp Effort and Inspection: abnormal respiratory pattern Cardio regular rhythm Rate: bradycardia GI soft to palpation Lab / Micro Data Attestation: I reviewed the patient's lab results. 11/29/24 06:05 11/29/24 06:05 Labs: Laboratory Results - last 24 hr 11/29/24 06:05: WBC 2.7 L, RBC 3.01 L, Hgb 9.1 L, Hct 28.1 L, MCV 93.4, MCH 30.2, MCHC 32.4, RDW Std Deviation 58.4 H, RDW Coeff of Allison 17.3 H, Plt Count 75 L, MPV 12.5 H, Immature Gran % (Auto) 0.700, Neut % (Auto) 63.2, Lymph % (Auto) 13.4 L, [place] % (Auto) 19.8 H, Eos % (Auto) 2.2, Baso % (Auto) 0.7, Absolute Neuts (auto) 1.7 L, Absolute Lymphs (auto) 0.36 L, Nucleated RBC % 0, Sodium 136, Potassium 3.3, Chloride 101, Carbon Dioxide 23.5, Anion Gap 11, BUN 9, Creatinine 0.74, Estim Creat Clear Calc 149.26, Est GFR (MDRD) Non-Af 101, BUN/Creatinine Ratio 11.7, Glucose 136 H, Calcium 8.9 Micro: Microbiology 11/26/24 10:50 Urine, Clean Catch Urine Culture - Preliminary Mixed Gram Positive Organisms Imaging Radiology Impression Echocardiogram 11/28/24 10:16 Interpretation Summary Normal LV size. Left ventricular systolic function is normal. The left ventricular ejection fraction is 55 %. Contrast injection was performed. The study was technically difficult. Ordering Physician: Byron Jennings Performed By: Padma Brown RDCS Assessment and Plan . Assessment and plan: #delirium/ alcohol withdrawal syndrome #alcoholic ketoacidosis, resolved #morbid obesity, recently on GLP-1 agonist Suggest: 1. agree with Precedex 2. add benzodiazepine to mitigate Precedex-associated hypotension/ fritz 3. consider supplemental phenobarbital IV 4. standard ICU px Critical Care Time: 60 minutes The entirety of this encounter was done via Telemedicine
[2024-11-29] MEDS: Na Biphos/Potassium Phosphate PACKET 1 PACKET PO (21:32)
[2024-11-30] VITALS (18 sets, daily range): BP systolic 118–175; BP diastolic 67–106; PULSE 59–95; RESP 12–24; TEMP 36.1–36.9; O2SAT 95–100
[2024-11-30] MEDS: Ciprofloxacin 0.3% 2.5ml Bottle 2 DRP OPHTHALMIC ×6 (03:42→21:55)
[2024-11-30 04:03] LABS: Hematocrit 28.5 % (40-54); Hemoglobin 9.3 g/dL (13.0-16.5); Mean Corp Hgb Conc 32.6 g/dL (32-36); Mean Corpuscular Volume 93.8 fL (80-94); Mean Platelet Vol. 12.2 fl (6.2-12.0); Platelet Count 101 K/mm3 (150-450); RBC Distribution Width CV 18.0 % (11.6-14.6); RBC Distribution Width SD 60.9 fl (35.1-43.9); Red Blood Count 3.04 M/mm3 (4.6-6.2); White Blood Count 4.0 K/mm3 (4.4-11.0)
[2024-11-30 04:26] LABS: AST(SGOT) 91 U/L (<=37); Alanine Aminotransfer ALT/SGPT 50 U/L (<=46); Albumin, Serum 3.6 g/dL (3.4-4.8); Alkaline Phosphatase 73 U/L (40-129); Anion Gap 11 (5-15); BUN 8 mg/dL (4-19); BUN/Creat Ratio 10.9 RATIO (10-20); Calcium,Total 8.9 mg/dL (7.6-11.0); Carbon Dioxide 24.3 mmol/L (21.0-32.0); Chloride 99 mmol/L (98-108); Estimated Creatinine Clearance 155.57 ml/min (50-250); Globulin 2.8 g/dL (2.2-4.2); Glucose 138 mg/dL (70-99); Potassium 3.5 mmol/L (3.3-5.1)
[2024-11-30] MEDS: 0.9% Saline Lock 10 ML Syringe IV (06:20)
[2024-11-30] MEDS: Magnesium Chloride 64 MG Delay Rel.Tablet 128 MG PO (10:49)
[2024-11-30] MEDS: Na Biphos/Potassium Phosphate PACKET 1 PACKET PO ×2 (10:49→21:57)
--- NOTE | 2024-11-30 14:34 | PN.CC_ITS ---
Objective Data Objective Data Vital Signs: Vital Signs Last response 3 Temperature 36.7 C 11/30/24 06:00 Temperature Source Temporal 11/30/24 06:00 Pulse Rate 70 11/30/24 12:00 Respiratory Rate 18 11/30/24 12:00 Respiratory Effort Normal, Non-Labored 11/29/24 14:00 Respiratory Depth Normal 11/29/24 14:00 Respiratory Pattern Normal 11/29/24 14:00 Blood Pressure 155/76 H 11/30/24 12:00 Blood Pressure Mean 102 11/30/24 12:00 Blood Pressure Source Monitor 11/30/24 12:00 Blood Pressure Position Sitting 11/30/24 12:00 Blood Pressure Location Left Arm 11/30/24 12:00 Pulse Ox 96 11/30/24 12:00 Oxygen Delivery Method Room Air 11/30/24 12:00 I&O: I&O Last 24 Hours 3 11/29/24 11/30/24 11/30/24 23:59 11:59 23:59 Intake Total 582.3 / 2285.56 1643.75 / 2200.00 556.25 / 2200.00 Balance 582.3 / 2285.56 1643.75 / 2200.00 556.25 / 2200.00 I&O: Total Stay 3 11/25/24 12:08 thru 11/30/24 14:12 Intake Total 48881.1433 Output Total 4400 Balance 59163.1433 Current Meds Ordered / Administered: Current meds ordered / Administered 3 Generic Name Dose Route Start Last Admin Trade Name Freq PRN Reason Stop Dose Admin Ciprofloxacin HCl 2 drp 11/27/24 10:00 11/30/24 13:25 Ciprofloxacin 0.3% 2.5ml Bottle OPHTHALMIC 2 drp Q4 NATASHA Administration Dicyclomine HCl 20 mg 11/29/24 01:58 Dicyclomine 10 Mg Capsule PO Q6H PRN PRN abdominal discomfort Folic Acid 1 mg 11/29/24 08:00 11/30/24 09:07 Folic Acid 1 Mg Tablet PO Not Given DAILY@0800 NATASHA Gabapentin 300 mg 11/29/24 01:58 Gabapentin 300 Mg Capsule PO Q8H PRN PRN moderate to severe anxiety Hydroxyzine Pamoate 50 mg 11/29/24 01:58 Hydroxyzine Lor 25 Mg Capsule PO Q4H PRN PRN mild anxiety Sodium Chloride 250 mls @ 15 mls/hr 11/25/24 17:19 11/28/24 14:43 IV Infused .[id number] PRN Infusion Saline Flush Sodium Chloride 250 mls @ 15 mls/hr 11/25/24 17:19 IV .[id number] PRN Additional IVPB Infusion Loperamide HCl 2 mg 11/29/24 01:58 Loperamide 2 Mg Capsule PO Q4H PRN PRN DIARRHEA/LOOSE STOOLS Lorazepam 1 mg 11/29/24 09:25 Lorazepam 2 Mg/Ml Syringe IV Q2H PRN PRN CIWA score >/=12 Protocol Lorazepam 1 mg 11/29/24 09:25 Lorazepam 1 Mg Tablet PO Q2H PRN PRN CIWA score >/=12 Protocol Magnesium Chloride 128 mg 11/26/24 10:00 11/30/24 10:49 Magnesium Chloride 64 Mg Delay Rel.Tablet PO 128 mg DAILY NATASHA Administration Metoprolol Tartrate 12.5 mg 11/29/24 22:00 11/30/24 10:48 Metoprolol Tartrate 25 Mg Tablet PO 12.5 mg BID NATASHA Administration Protocol Nutritional Formula (Lactose Free) 120 ml 11/25/24 22:00 11/30/24 14:10 Ensure Plus High Protein 120 Ml Liquid PO Not Given 4X/DAY NATASHA Ondansetron HCl 4 mg 11/25/24 17:14 11/25/24 18:18 Ondansetron 4 Mg/2 Ml Vial IV 4 mg Q8H PRN PRN Administration NAUSEA/VOMITING Oxycodone HCl 5 mg 11/25/24 21:47 11/26/24 08:59 Oxycodone 5 Mg Tablet PO 5 mg Q6H PRN PRN Administration Pain Score 4-10 or Pre PT/OT Pantoprazole Sodium 40 mg 11/26/24 10:00 11/30/24 10:50 Pantoprazole Sodium 40 Mg Tablet PO 40 mg BID NATASHA Administration Phenobarbital 64.8 mg 11/29/24 04:30 11/30/24 13:25 Phenobarbital 32.4 Mg Tablet PO 12/03/24 12:29 64.8 mg Q4H NATASHA Administration Taper Potassium Phos/Sodium Phos 1 packet 11/27/24 10:00 11/30/24 10:49 Na Biphos/Potassium Phosphate Packet PO 1 packet BID NATASHA Administration Senna/Docusate Sodium 2 tablet 11/25/24 17:14 Senna/Docusate Sodium 1 Tablet PO BID PRN PRN Constipation Sodium Chloride 10 - 40 ml 11/25/24 17:19 11/30/24 06:20 0.9% Saline Lock 10 Ml Syringe IV 40 ml UD PRN Administration SALINE FLUSH Thiamine HCl 100 mg 11/29/24 08:00 11/30/24 09:08 Thiamine Hydrochloride 100 Mg Tablet PO Not Given DAILYCM NATASHA Trazodone HCl 100 mg 11/29/24 01:58 Trazodone 100 Mg Tablet PO QHS PRN PRN INSOMNIA Lab / Micro Data Attestation: I reviewed the patient's lab results. 11/30/24 03:50 11/30/24 03:50 Labs: Laboratory Results - last 24 hr 11/30/24 03:50: WBC 4.0 L, RBC 3.04 L, Hgb 9.3 L, Hct 28.5 L, MCV 93.8, MCH 30.6, MCHC 32.6, RDW Std Deviation 60.9 H, RDW Coeff of Allison 18.0 H, Plt Count 101 L, MPV 12.2 H, Sodium 135, Potassium 3.5, Chloride 99, Carbon Dioxide 24.3, Anion Gap 11, BUN 8, Creatinine 0.71, Estim Creat Clear Calc 155.57, Est GFR (MDRD) Non-Af 103, BUN/Creatinine Ratio 10.9, Glucose 138 H, Calcium 8.9, Total Bilirubin 0.53, AST 91 H, ALT 50 H, Alkaline Phosphatase 73, Total Protein 6.3, Albumin 3.6, Globulin 2.8, Albumin/Globulin Ratio 1.3 Micro: Microbiology 11/26/24 10:50 Urine, Clean Catch Urine Culture - Final Mixed Gram Positive Organisms Assessment and Plan . Assessment and plan: Assessment and plan: #delirium/ alcohol withdrawal syndrome #alcoholic ketoacidosis, resolved #morbid obesity, recently on GLP-1 agonist Suggest: 1. agree with Precedex 2. add benzodiazepine to mitigate Precedex-associated hypotension/ fritz 3. phenobarbital 4. standard ICU px Critical Care Time: 30 minutes The entirety of this encounter was done via Telemedicine Physical Exam Const alert, oriented x3 and no apparent distress General Appearance: cooperative Subjective Subjective Has improved substantially, sitting in chair, lucid, cooperative conversant. Demonstrates adequate insight into behavioral issues.
--- NOTE | 2024-11-30 15:15 | PN.HOSP_ITS ---
Reason for Visit Chief Complaint: Confusion Subjective Subjective Patient awake and alert today, answering questions appropriately, is not sure how he ended up in the ICU and does not remember a lot of his hospitalization, reports moving forward he is not going to drink alcohol for the foreseeable future and is agreeable to continuing the taper Objective Data Objective Data Vital Signs: Vital Signs Temp Pulse Resp BP Pulse Ox O2 Del Method 98.0 F 70 18 155/76 H 96 Room Air 11/30/24 06:00 11/30/24 12:00 11/30/24 12:00 11/30/24 12:00 11/30/24 12:00 11/30/24 12:00 Oxygen Delivery Method Room Air Weight: 145.2 kg Body Mass Index (BMI) 43.4 Intake & Output: Intake and Output for Last 24 Hours 11/28/24 11/29/24 11/30/24 23:59 23:59 23:59 Intake Total 2433.75 / 2433.75 2285.56 / 2285.56 2200.00 / 2200.00 Output Total 1350 / 1350 Balance 1083.75 / 1083.75 2285.56 / 2285.56 2200.00 / 2200.00 Lab / Micro Data 11/30/24 03:50 11/30/24 03:50 Labs: Laboratory Results - last 24 hr 11/30/24 03:50: WBC 4.0 L, RBC 3.04 L, Hgb 9.3 L, Hct 28.5 L, MCV 93.8, MCH 30.6, MCHC 32.6, RDW Std Deviation 60.9 H, RDW Coeff of Allison 18.0 H, Plt Count 101 L, MPV 12.2 H, Sodium 135, Potassium 3.5, Chloride 99, Carbon Dioxide 24.3, Anion Gap 11, BUN 8, Creatinine 0.71, Estim Creat Clear Calc 155.57, Est GFR (MDRD) Non-Af 103, BUN/Creatinine Ratio 10.9, Glucose 138 H, Calcium 8.9, Total Bilirubin 0.53, AST 91 H, ALT 50 H, Alkaline Phosphatase 73, Total Protein 6.3, Albumin 3.6, Globulin 2.8, Albumin/Globulin Ratio 1.3 Micro: Microbiology 11/26/24 10:50 Urine, Clean Catch Urine Culture - Final Mixed Gram Positive Organisms Physical Exam Narrative General: Alert, oriented, no apparent distress HEENT: Atraumatic, normocephalic Eyes: Anicteric, normal conjunctiva, extraocular movements grossly intact Neck: Supple Respiratory: Clear to auscultation bilaterally, normal respiratory effort Cardiovascular: Regular rate and rhythm GI: Soft, nontender, nondistended Extremities: No edema Musculoskeletal: Moving all extremities Neuro: No overt focal neurological deficits Skin: No rashes appreciated Psych: Cooperative Assessment & Plan Assessment/Plan (1) Agitation: PLAN: Plan 64 y/o M with a history of hypertension, anemia, thrombocytopenia, alcohol use who presented to [facility] ED 11/29/2024 for confusion and feeling unwell over 2 weeks with poor p.o. intake. In the ED he was found to have a high anion gap with a low bicarb with an elevated beta hydroxybutyrate and ketones in his urine as well as an elevated lactic. It was felt that his acid-base disorder was complex and due to elevated lactic acid as well as alcoholic ketosis and starvation ketosis and that his metabolic encephalopathy was from alcohol use in addition to his electrolyte abnormalities. Patient admitted to [facility]. #Acute agitation?suspected secondary to alcohol withdrawal - Patient's initial metabolic encephalopathy resolved however overnight he became acutely agitated and combative, code michael called -Patient moved to ICU and placed on Precedex drip -Patient started on phenobarb taper -Continue CIWA -11/30: Patient significantly improved now that he is off of Precedex and on the phenobarb taper, suspect the above was secondary to alcohol withdrawal, patient agreeable to continue on taper, anticipate DC once patient further along on taper, given rapid improvement may not need the full duration given long half- life of phenobarbital. Continue thiamine and folate #New onset afib - Patient started on Lopressor -Echocardiogram with normal LV and EF of 55% -TSH within normal limits -CHADS2-VASc only 1 so patient not started on anticoagulation but may need to discuss risks and benefits of this option prior to discharge, patient presently unable to participate in this conversation -11/30: Patient back in sinus rhythm with PACs, he reports he has been told in the past that they were not sure if he had PACs or A-fib, discussed risks and benefits of anticoagulation given his A-fib here but he is now back in sinus rhythm, after discussing risks and benefits and explaining his [id number] score patient has opted to not start anticoagulation, can consider Holter monitor versus outpatient follow-up. If patient goes back into A-fib prior to discharge may need to revisit this conversation. Continue metoprolol # Alcohol use disorder -Patient offered information on the rehab program -Advise cessation -11/30: On phenobarb taper, continue thiamine and folate #pancytopenia - Has been fairly stable since admission -Likely secondary to chronic alcohol use and underlying liver dysfunction -Recommend cessation -Can consider outpt f/u -11/30: Suspecting this is alcohol related, platelet count over 100 today, hemoglobin and white blood cell count stable #Hypertension - Will add holding parameters to patient's lisinopril given he has been started on Precedex and phenobarbital -11/30: Blood pressure much higher now that patient is off of Precedex, will resume lisinopril but at lower dose given he is still on phenobarb and can uptitrate as tolerated Chronic medical problems and/or problems not being actively addressed during today's encounter: #Abnormal UA-UTI ruled out - Urine culture with mixed gram-positive organisms, Rocephin discontinued # Acute metabolic encephalopathy?resolved - Suspected to be multifactorial on presentation due to alcohol use, ketosis and electrolyte abnormalities as well as starvation -Patient resolved with IVF and glucose # High anion gap monomelic acidosis?resolved - Multifactorial on presentation - Suspected to be combination of alcoholic ketosis with starvation ketosis on top of lactic acidosis - This corrected with IV fluids and supportive care #DVT ppx: SCDs Rosalind Gamez MD Charges/Coding Visit Charges Inpatient E&M: 18339 Subs Hosp L2
[2024-12-01] MEDS: Ciprofloxacin 0.3% 2.5ml Bottle 2 DRP OPHTHALMIC ×3 (02:07→09:21)
[2024-12-01 04:00] VITALS: BP 154/81; PULSE 61; PULSE 70; RESP 18; TEMP 36.9; O2SAT 100
[2024-12-01 04:20] VITALS: BP 154/81; PULSE 67; RESP 18; TEMP 36.6; O2SAT 100
[2024-12-01] MEDS: 0.9% Saline Lock 10 ML Syringe IV (04:25)
[2024-12-01 04:35] LABS: Hematocrit 27.5 % (40-54); Hemoglobin 8.8 g/dL (13.0-16.5); Mean Corp Hgb Conc 32.0 g/dL (32-36); Mean Corpuscular Volume 93.2 fL (80-94); Mean Platelet Vol. 12.2 fl (6.2-12.0); Platelet Count 123 K/mm3 (150-450); RBC Distribution Width CV 17.9 % (11.6-14.6); RBC Distribution Width SD 60.5 fl (35.1-43.9); Red Blood Count 2.95 M/mm3 (4.6-6.2); White Blood Count 3.6 K/mm3 (4.4-11.0)
[2024-12-01 04:57] LABS: AST(SGOT) 78 U/L (<=37); Alanine Aminotransfer ALT/SGPT 48 U/L (<=46); Albumin, Serum 3.7 g/dL (3.4-4.8); Alkaline Phosphatase 69 U/L (40-129); Anion Gap 12 (5-15); BUN 8 mg/dL (4-19); BUN/Creat Ratio 10.8 RATIO (10-20); Calcium,Total 8.8 mg/dL (7.6-11.0); Carbon Dioxide 23.5 mmol/L (21.0-32.0); Chloride 100 mmol/L (98-108); Estimated Creatinine Clearance 155.57 ml/min (50-250); Globulin 2.8 g/dL (2.2-4.2); Glucose 118 mg/dL (70-99); Potassium 3.3 mmol/L (3.3-5.1)
--- NOTE | 2024-12-01 07:28 | PN.HOSP_ITS ---
Reason for Visit Chief Complaint: Confusion Subjective Subjective Feeling well. is at bedside and confirms that the patient looks much better than he did when she brought him in. Objective Data Objective Data Vital Signs: Vital Signs Temp Pulse Resp BP Pulse Ox O2 Del Method 36.6 C 67 18 154/81 H 100 Room Air 12/01/24 04:20 12/01/24 04:20 12/01/24 04:20 12/01/24 04:20 12/01/24 04:20 12/01/24 04:20 Oxygen Delivery Method Room Air Weight: 145.2 kg Body Mass Index (BMI) 43.4 Intake & Output: Intake and Output for Last 24 Hours 11/29/24 11/30/24 12/01/24 23:59 23:59 23:59 Intake Total 2285.56 / 2285.56 2750.00 / 2750.00 Balance 2285.56 / 2285.56 2750.00 / 2750.00 Lab / Micro Data 12/01/24 04:20 12/01/24 04:20 Labs: Laboratory Results - last 24 hr 12/01/24 04:20: WBC 3.6 L, RBC 2.95 L, Hgb 8.8 L, Hct 27.5 L, MCV 93.2, MCH 29.8, MCHC 32.0, RDW Std Deviation 60.5 H, RDW Coeff of Allison 17.9 H, Plt Count 123 L, MPV 12.2 H, Sodium 136, Potassium 3.3, Chloride 100, Carbon Dioxide 23.5, Anion Gap 12, BUN 8, Creatinine 0.71, Estim Creat Clear Calc 155.57, Est GFR (MDRD) Non-Af 103, BUN/Creatinine Ratio 10.8, Glucose 118 H, Calcium 8.8, Total Bilirubin 0.49, AST 78 H, ALT 48 H, Alkaline Phosphatase 69, Total Protein 6.4, Albumin 3.7, Globulin 2.8, Albumin/Globulin Ratio 1.3 Micro: Microbiology 11/26/24 10:50 Urine, Clean Catch Urine Culture - Final Mixed Gram Positive Organisms Physical Exam Const alert and no apparent distress Constitutional Narrative: Up in chair. Afebrile. Nontoxic. Alert and appropriate. HEENT head/scalp atraumatic Assessment & Plan Assessment/Plan (1) Agitation: PLAN: Plan High anion-gap metabolic acidosis * POA, now resolved * suspect starvation ketosis. Patient endorses that he has not been eating well and had been on an alcohol cai. Acute alcohol withdrawal. * Patient had not been feeling well. Had quit several days prior though did have 1 drink the night before he came in. Patient likely was experiencing delirium tremens. He did require transfer to the ICU and started on dexmetomidine gtt, then switched to phenobarbital taper. * thiamine and folate * Without my even prompting patient states that he but is going to abstain from alcohol completely. He was actually trying to quit alcohol when this had's started at home. pAfib: * on metolprolol 12.5 BID * [id number] 1. Pt declined anticoagulation. * Start ASA 81/d now that platelets are better. * Echocardiogram showed an EF of 55%. Pancytopenia * -Plt improved * likely 2/2 alcohol use HTN * continue lisinopril DVT ppx: SCDs Discussed with the patient's .
--- NOTE | 2024-12-01 07:34 | PCM.PN.INT ---
Assessment & Plan Assessment/Plan (1) Alcohol withdrawal: (2) Ketosis: PLAN: Plan The patient has been maintained in the ICU secondary to acute alcohol withdrawal, which was medically managed with Precedex. He has been weaned off of the aforementioned medication and remains on phenobarbital and Ativan. The patient is symptomatically well-controlled and is anxious to be discharged home. Continue thiamine and folic acid supplementation. Will defer ongoing management to hospitalist. Critical care will sign off at this time. Subjective Subjective The patient was seen and examined at the bedside this morning. Events from the last 24 hours have been reviewed. The patient is currently afebrile, hemodynamically stable and maintaining appropriate oxygen saturations on room air. Remains on phenobarbital and as needed Ativan. He is resting comfortably in his bedside recliner and is hopeful for discharge home today. Objective Data Objective Data The patient's most recent lab work, culture data and imaging studies have all been personally reviewed. Vital Signs: Vital Signs Temp Pulse Resp BP Pulse Ox O2 Del Method 97.9 F 67 18 154/81 H 100 Room Air 12/01/24 04:20 12/01/24 04:20 12/01/24 04:20 12/01/24 04:20 12/01/24 04:20 12/01/24 04:20 Oxygen Delivery Method Room Air Weight: 320 lb 1.779 oz Body Mass Index (BMI) 43.4 Intake & Output: Intake and Output for Last 24 Hours 11/29/24 11/30/24 12/01/24 23:59 23:59 23:59 Intake Total 2285.56 / 2285.56 2750.00 / 2750.00 Balance 2285.56 / 2285.56 2750.00 / 2750.00 Lab / Micro Data Attestation: I reviewed the patient's lab results. 12/01/24 04:20 12/01/24 04:20 Labs: Laboratory Results - last 24 hr 12/01/24 04:20: WBC 3.6 L, RBC 2.95 L, Hgb 8.8 L, Hct 27.5 L, MCV 93.2, MCH 29.8, MCHC 32.0, RDW Std Deviation 60.5 H, RDW Coeff of Allison 17.9 H, Plt Count 123 L, MPV 12.2 H, Sodium 136, Potassium 3.3, Chloride 100, Carbon Dioxide 23.5, Anion Gap 12, BUN 8, Creatinine 0.71, Estim Creat Clear Calc 155.57, Est GFR (MDRD) Non-Af 103, BUN/Creatinine Ratio 10.8, Glucose 118 H, Calcium 8.8, Total Bilirubin 0.49, AST 78 H, ALT 48 H, Alkaline Phosphatase 69, Total Protein 6.4, Albumin 3.7, Globulin 2.8, Albumin/Globulin Ratio 1.3 Micro: Microbiology 11/26/24 10:50 Urine, Clean Catch Urine Culture - Final Mixed Gram Positive Organisms Physical Exam Const alert and no apparent distress Constitutional Narrative: Sitting in bedside recliner. Morbidly obese. General Appearance: cooperative HEENT normocephalic and head/scalp atraumatic Eyes PERRL, EOMs intact bilaterally and conjunctivae normal Neck supple General: trachea midline Chest inspection of chest normal Resp normal respiratory effort Auscultation: Negative for rales, rhonchi or wheezes Cardio regular rate and regular rhythm GI normal to inspection, nondistended, normoactive bowel sounds Extremity no clubbing, cyanosis or edema Skin no rashes or lesions noted Neuro CN's II-XII intact bilaterally, moves all extremities and no focal motor deficits Psych cooperative and affect normal Charges/Coding Visit Charges Inpatient E&M: 33502 Subs Hosp L1
[2024-12-01 08:00] VITALS: BP 142/87; PULSE 84; PULSE 88; RESP 15; TEMP 36.1; O2SAT 94
[2024-12-01 08:57] VITALS: BP 142/87; PULSE 84; RESP 15; TEMP 36.4; O2SAT 94
[2024-12-01 09:14] VITALS: BP 142/87; PULSE 84
[2024-12-01] MEDS: Magnesium Chloride 64 MG Delay Rel.Tablet 128 MG PO (09:15)
[2024-12-01] MEDS: Na Biphos/Potassium Phosphate PACKET 1 PACKET PO (09:16)
[2024-12-01] MEDS: Thiamine Hydrochloride 100 MG Tablet PO (09:21)
--- NOTE | 2024-12-01 09:51 | DS.PCM_ITS ---
Providers Date of Admission: 11/25/24 Primary Care Physician: GLADIS Valdez Consultations 11/29/24 04:53 Consult: Shirt Hemmer / Pulmonary Medicine Routine Consulting Provider: Intensivists/Pulmonary Med Reason for Consult: severe alcohol withdrawal with risk for DTs EMERGENT Consult: No MD Notified: Yes Date Notified: 11/29/24 Time Notified: 06:30 Method of Notification: Text Reason For Visit: STARVATION KETOSIS Diagnosis Discharge Diagnosis (1) Agitation: Status: Acute Code(s): R45.1 - Restlessness and agitation Plan High anion-gap metabolic acidosis * POA, now resolved * suspect starvation ketosis. Patient endorses that he has not been eating well and had been on an alcohol cai. Acute alcohol withdrawal. * Patient had not been feeling well. Had quit several days prior though did have 1 drink the night before he came in. Patient likely was experiencing delirium tremens. He did require transfer to the ICU and started on dexmetomidine gtt, then switched to phenobarbital taper. * thiamine and folate * Without my even prompting patient states that he but is going to abstain from alcohol completely. He was actually trying to quit alcohol when this had's started at home. pAfib: * on metolprolol 12.5 BID * [id number] 1. Pt declined anticoagulation. * Start ASA 81/d now that platelets are better. * Echocardiogram showed an EF of 55%. Pancytopenia * -Plt improved * likely 2/2 alcohol use HTN * continue lisinopril DVT ppx: SCDs Discussed with the patient's . Medications at Discharge Home Medications lisinopril 20 mg tablet 20 mg PO TID 11/13/22 amlodipine 5 mg tablet 5 mg PO DAILY 30 days #30 tabs 07/01/24 Held on 11/25/24. Instructions: has not been filled magnesium oxide 400 mg (241.3 mg magnesium) tablet 400 mg PO DAILY 11/25/24 aspirin 81 mg chewable tablet 81 mg PO BREAKFAST #0 tabs 12/01/24 metoprolol tartrate 25 mg tablet 12.5 mg (1/2 x 25 mg) PO BID #60 tabs 12/01/24 multivitamin 1 tab PO DAILY #30 tabs 12/01/24 Hospital Course Operations None Procedures None Summary of Care Provided Hospital Course: Greater than 30 minutes spent on discharge. This is a 64-year-old male who had quit alcohol several days prior (though did have a drink the day before presentation on (was not feeling well. Patient had a high anion gap metabolic acidosis. Patient got worse and a code michael was called and patient was transferred to the intensive care unit and started on a dexmedetomidine drip. Eventually his mental status did return patient was doing well. Patient had been consuming large amounts of alcohol and so he was experiencing delirium tremens during this hospitalization. Patient is going to abstain from alcohol as that was his intent to quit and then stay at home but his symptoms were so severe that required him being here in the hospital. He had not been eating well so he was going through starvation ketosis which was why he has a high anion gap metabolic acidosis. Discussed with the patient and his and I do not have any further recommendations other than encouraging him to continue to abstain from alcohol though I also did recommend they follow with primary care doctor to have outpatient labs performed. Weight / BMI Weight Weight: 145.2 kg Body Mass Index (BMI) 43.4 ABG / Lab / Microbiology Data 12/01/24 04:20 12/01/24 04:20 Laboratory: Laboratory Results - last 24 hr 12/01/24 04:20: WBC 3.6 L, RBC 2.95 L, Hgb 8.8 L, Hct 27.5 L, MCV 93.2, MCH 29.8, MCHC 32.0, RDW Std Deviation 60.5 H, RDW Coeff of Allison 17.9 H, Plt Count 123 L, MPV 12.2 H, Sodium 136, Potassium 3.3, Chloride 100, Carbon Dioxide 23.5, Anion Gap 12, BUN 8, Creatinine 0.71, Estim Creat Clear Calc 155.57, Est GFR (MDRD) Non-Af 103, BUN/Creatinine Ratio 10.8, Glucose 118 H, Calcium 8.8, Total Bilirubin 0.49, AST 78 H, ALT 48 H, Alkaline Phosphatase 69, Total Protein 6.4, Albumin 3.7, Globulin 2.8, Albumin/Globulin Ratio 1.3 Microbiology: Microbiology 11/26/24 10:50 Urine, Clean Catch Urine Culture - Final Mixed Gram Positive Organisms D/C Instructions DC O2, CPAP, BIPAP Needs Home O2 Discharge instructions: No Meaningful Use Info Meaningful Use Meaningful Use Diagnoses (Choose all that apply): None applicable Discharge Plan Admission Admit Date/Time: 11/25/24 16:39 Primary Reason for Your Visit: Alcohol withdrawal Attending Provider: Rudolph Astorga Primary Care Provider: Kylie Angelo Consulting Providers: Екатерина Roach; Byron Jennings; Rosalind Gamez Instructions Additional Instructions / Restrictions: You went through severe alcohol drawl known as delirium tremens. It oftentimes is hard to quit on your own so you may follow-up with alcoholic Anonymous or [facility]. Do recommend follow-up primary care doctor just has some routine lab work to ensure that the acid-base imbalance likely so initially when you arrived as continue to resolve. I suspect that it will as I suspect it was due to not eating properly. Also he also had an abnormal heart rhythm, known as atrial fibrillation. That is since resolved but it is possible he may go in and out of it. You been started on medication to help control your heart rate from getting too fast called metoprolol. Also there is a low risk of stroke with that so I do recommend you do take an aspirin. Also recommend that you do follow-up with cardiology as outpatient. Discharge Orders/Prescriptions Prescriptions: New aspirin 81 mg Tablet,Chewable 81 mg PO BREAKFAST Qty: 0 0RF metoprolol tartrate 25 mg Tablet 12.5 mg PO BID Qty: 60 0RF multivitamin Tablet 1 tab PO DAILY Qty: 30 0RF Rx Instructions: [id number]. No prescription required. Continued lisinopril 20 mg tablet 20 mg PO TID magnesium oxide 400 mg (241.3 mg magnesium) tablet 400 mg PO DAILY No Action amlodipine 5 mg tablet 5 mg PO DAILY 30 Days Qty: 30 0RF Referrals / Follow Up: [facility] [Provider Group] - Within 1 Month Kylie Angelo, [facility] [Primary Care Provider, Family Practice] - Within 2 Weeks Disposition Disposition (needs filled in before D/C Order can be placed): Home, Self Care Charges/Coding Visit Charges Inpatient E&M: 64013 Disch Hosp >30min
--- NOTE | 2024-12-01 10:10 | CASEMGMT ---
Hospitalist reports pt will DC today. During ICU rounds, pt reports that he feels safe returning home today and denies any DC needs, questions, or concerns. Pt's RN is aware. No further needs identified at this time.
[2024-12-01 10:14] VITALS: BP 142/87; PULSE 84; RESP 15; TEMP 36.4; O2SAT 94
== END 2024-12-01 10:17 | disposition home or self-care (01) | DRG 642 ==
LOC: ED 16:24 → PCU 11-26 07:08 → ICU 11-29 07:16 → PCU 12-01 07:27
PROVIDERS: Internal Medicine; Admitting Provider Internal Medicine; Emergency Provider Emergency Medicine; PCP Nurse Practitioner Family
DX: E88.89 Other specified metabolic disorders (principal); G93.41 Metabolic encephalopathy; D61.818 Other pancytopenia; I48.92 Unspecified atrial flutter; E87.20 Acidosis, unspecified; Z68.42 Body mass index [BMI] 45.0-49.9, adult; F10.239 Alcohol dependence with withdrawal, unspecified; E87.1 Hypo-osmolality and hyponatremia; N30.00 Acute cystitis without hematuria; Z66 Do not resuscitate; I10 Essential (primary) hypertension; K76.0 Fatty (change of) liver, not elsewhere classified; E66.01 Morbid (severe) obesity due to excess calories; E83.42 Hypomagnesemia; I48.0 Paroxysmal atrial fibrillation; Z87.891 Personal history of nicotine dependence; Z79.899 Other long term (current) drug therapy; Y90.2 Blood alcohol level of 40-59 mg/100 ml
CPT/HCPCS: 36415; 36600; 71045; 72100; 74176; 80048; 80053; 80076; 80179; 80307; 81001; 82010; 82077; 82140; 82803; 83605; 83690; 83735; 84100; 84443; 85025; 85027; 85610; 85730; 87086; 87088; 93005; 93306; 94668; 99252; 99285; Q9957; A4216; C8929; G0463; J2405

== ENCOUNTER → 2025-01-26 | Outpatient (CLI) | payer OTHER, SELFPAY ==
[2025-01-26 19:12] LABS: AST(SGOT) 21 U/L (<=37); Alanine Aminotransfer ALT/SGPT 11 U/L (<=46); Albumin, Serum 4.0 g/dL (3.4-4.8); Alkaline Phosphatase 66 U/L (40-129); Bilirubin, Direct 0.14 mg/dL (0.00-0.30); Globulin 3.5 g/dL (2.2-4.2); PSA,Total - Annual Screen 1.74 ng/mL (0.02-4.00)
== END | disposition home or self-care (01) ==
LOC: BFHLAB 14:39
PROVIDERS: PCP Nurse Practitioner Family; Visit Provider Nurse Practitioner Family
DX: R74.8 Abnormal levels of other serum enzymes (principal); Z12.5 Encounter for screening for malignant neoplasm of prostate
CPT/HCPCS: 36415; 80076; 84153; G0103